=== PATIENT | male | born 1955 | race Caucasian/White ===

== ENCOUNTER → 2016-05-08 | Outpatient (CLI) | payer OTHER ==
[~2016-05-08] MED LIST: ASPI325T PO; ASPI325T28 PO; CHLO125TA PO; CIPR500T89 PO; DIAB2.5T PO; FINA5TAB2 PO; FLAG500T PO; GLYB25TA PO; INSUDET SC; LISI40TAB PO; METF1000 PO; METO50TA2 PO; MULTTAB86 PO; PERC5TAB6 PO; PROS5TAB PO; TYLE167L PO; VITA100072 PO; VITA200016 PO; ZEST1TAB9 PO
[2016-05-08 12:19] LABS: ALBUMIN 3.7 GM/DL (3.2-5.2); ALBUMIN/GLOBULIN RATIO 1.03 (1.00-1.93); ALKALINE PHOSPHATASE 110 U/L (45-117); ALT/SGPT 28 U/L (12-78); ANION GAP 11 MEQ/L (8-16); AST/SGOT 15 U/L (15-37); BILIRUBIN,TOTAL 0.3 MG/DL (0.2-1.0); BLOOD UREA NITROGEN 15 MG/DL (7-18); CALCIUM LEVEL 9.8 MG/DL (8.8-10.2); CARBON DIOXIDE LEVEL 28 MEQ/L (21-32); CHLORIDE LEVEL 100 MEQ/L (98-107); CREATININE FOR GFR 0.93 MG/DL (0.70-1.30); GLOMERULAR FILTRATION RATE > 60.0 (>49); GLUCOSE, FASTING 246 MG/DL (80-110); POTASSIUM SERUM 4.5 MEQ/L (3.5-5.1); SODIUM LEVEL 139 MEQ/L (136-145); TOTAL PROTEIN 7.3 GM/DL (6.4-8.2)
== END | disposition home or self-care (01) ==
LOC: M WUC 10:30
PROVIDERS: ATTEND Physician Assistant
DX: E11.9 Type 2 diabetes mellitus without complications (principal)

== ENCOUNTER → 2016-08-10 | Outpatient (CLI) | payer OTHER ==
[2016-08-10 18:35] LABS: ALBUMIN 3.8 GM/DL (3.2-5.2); ALBUMIN/GLOBULIN RATIO 1.12 (1.00-1.93); ALKALINE PHOSPHATASE 94 U/L (45-117); ALT/SGPT 33 U/L (12-78); ANION GAP 8 MEQ/L (8-16); AST/SGOT 20 U/L (15-37); BILIRUBIN,TOTAL 0.3 MG/DL (0.2-1.0); BLOOD UREA NITROGEN 11 MG/DL (7-18); CALCIUM LEVEL 9.4 MG/DL (8.8-10.2); CARBON DIOXIDE LEVEL 32 MEQ/L (21-32); CHLORIDE LEVEL 100 MEQ/L (98-107); CREATININE FOR GFR 0.79 MG/DL (0.70-1.30); GLOMERULAR FILTRATION RATE > 60.0 (>49); GLUCOSE, FASTING 134 MG/DL (80-110); POTASSIUM SERUM 3.6 MEQ/L (3.5-5.1); SODIUM LEVEL 140 MEQ/L (136-145); TOTAL PROTEIN 7.2 GM/DL (6.4-8.2)
== END ==
LOC: M WUC 11:09
PROVIDERS: ATTEND Physician Assistant
DX: E11.9 Type 2 diabetes mellitus without complications (principal)

== ENCOUNTER → 2016-08-28 | Outpatient (CLI) | payer OTHER | LOC: M WUC 09:41 | PROVIDERS: ATTEND Physician Assistant | DX: E11.9 Type 2 diabetes mellitus without complications (principal) ==

== ENCOUNTER → 2016-11-08 | Outpatient (CLI) | payer OTHER, MEDICARE, MEDICAID ==
[~2016-11-08] MED LIST changes: +ALBU17IN INH; +ASPI81TAEC PO; +ATOR40TA75 PO; +CHLO25TA PO; +CIPR-249 PO; -CIPR500T89 PO; +CLOP75TA2 PO; -METF1000 PO; +METF10004 PO; -METO50TA2 PO; +METO50TA7 PO; +NATE60TA5 PO; +OMEP20CA3 PO; +PERC5TAB12 PO; -PERC5TAB6 PO; +TOUJ1.2I SC; +TRAM50TA2 PO; +VITA100067 PO
[2016-11-08 18:40] LABS: ALBUMIN 3.6 GM/DL (3.2-5.2); ALBUMIN/GLOBULIN RATIO 0.97 (1.00-1.93); ALKALINE PHOSPHATASE 109 U/L (45-117); ALT/SGPT 27 U/L (12-78); ANION GAP 9 MEQ/L (8-16); AST/SGOT 21 U/L (15-37); BILIRUBIN,TOTAL 0.4 MG/DL (0.2-1.0); BLOOD UREA NITROGEN 12 MG/DL (7-18); CALCIUM LEVEL 9.7 MG/DL (8.8-10.2); CARBON DIOXIDE LEVEL 28 MEQ/L (21-32); CHLORIDE LEVEL 103 MEQ/L (98-107); CHOLESTEROL LEVEL 112 MG/DL (<200); CREATININE FOR GFR 0.87 MG/DL (0.70-1.30); GLOMERULAR FILTRATION RATE > 60.0 (>49); GLUCOSE, FASTING 117 MG/DL (80-110); SODIUM LEVEL 140 MEQ/L (136-145); TOTAL PROTEIN 7.3 GM/DL (6.4-8.2); TRIGLYCERIDES LEVEL 119 MG/DL (<150)
== END ==
LOC: M WUC 09:36
PROVIDERS: ATTEND Physician Assistant
DX: E11.9 Type 2 diabetes mellitus without complications (principal); E78.4 Other hyperlipidemia; Z12.5 Encounter for screening for malignant neoplasm of prostate

== ENCOUNTER → 2016-12-30 | Outpatient (CLI) | payer OTHER, MEDICARE, MEDICAID ==
[2017-01-02 00:06] LABS: ACETAMINOPHEN Negative ug/mL (10-30); AMITRIPTYLINE None Detected (Not Estab.); BUTALBITAL None Detected ug/mL (1-10); DESIPRAMINE None Detected (Not Estab.); DIAZEPAM None Detected ug/mL (0.1-0.9); DOXEPIN None Detected (Not Estab.); ETHANOL Negative % (0.000-0.010); NORCHLORDIAZEPOXIDE None Detected ug/mL (0.1-0.6); NORDIAZEPAM None Detected ug/mL (0.1-1.4); NORDOXEPIN None Detected (Not Estab.); NORTRIPTYLINE None Detected ng/mL (50-150); PENTOBARBITAL None Detected ug/mL (1-5); PHENOBARBITAL None Detected ug/mL (15-40); PHENYTOIN None Detected ug/mL (10.0-20.0)
== END ==
LOC: M WUC 09:13
PROVIDERS: ATTEND Physical Medicine & Rehabilitation
DX: Z98.1 Arthrodesis status (principal)

== ENCOUNTER 2017-01-22 17:52 | Observation (INO) | payer MEDICAID, MEDICARE, OTHER ==
[~2017-01-22] VITALS: Ht 190.5 cm; Wt 95.4 kg
[~2017-01-22 17:52] MED LIST changes: -ALBU17IN INH; -ASPI81TAEC PO; -ATOR40TA75 PO; -CHLO25TA PO; -CLOP75TA2 PO; -NATE60TA5 PO; -OMEP20CA3 PO; -TOUJ1.2I SC; -TRAM50TA2 PO; -VITA100067 PO
[2017-01-22] MEDS ORDERED: niCARdipine IV 40 MG in APPROPRIATE DILUENT 1 EA IV SCH (18:25)
[2017-01-22] MEDS ORDERED: NATE60TA5 PO (18:29)
[2017-01-22] MEDS ORDERED: CHLO25TA PO (18:29)
[2017-01-22] MEDS ORDERED: ATOR40TA75 PO (18:29)
--- NOTE | 2017-01-22 18:30 | REPUSA ---
CT of the head Clinical history: Headache. Technique: Multiple axial CT images were obtained through the head without administration of contrast . Findings: The ventricles and sulci are symmetric bilaterally. There is no evidence of acute hemorrhag e or infarct. There is no midline shift, mass effect, or extra-axial fluid collection. The osseous st ructures are unremarkable. The visualized paranasal sinuses and mastoid air cells are clear. Impression: Negative study.
[2017-01-22 18:39] LABS: INR 0.83
[2017-01-22 18:42] LABS: BASO # 0.1 K/mm3 (0.0-0.2); BASO % 0.7 % (0.0-1.0); EOS # 0.3 K/mm3 (0.0-0.50); EOS % 2.8 % (0.0-3.0); LARGE UNSTAINED CELL # 0.2 K/mm3 (0.0-0.4); LYMPH # 3.6 K/mm3 (1.5-4.5); LYMPH % 30.3 % (24.0-44.0); MEAN CORPUSCULAR HEMOGLOBIN 29.2 pg (27.0-33.0); MEAN CORPUSCULAR HGB CONC 34.1 g/dl (32.0-36.5); MEAN CORPUSCULAR VOLUME 85.7 fl (80.0-96.0); MONO # 0.7 K/mm3 (0.0-0.8); MONO % 5.9 % (0.0-5.0); NEUTROPHILS # 6.9 K/mm3 (1.8-7.7); NEUTROPHILS % 58.3 % (36.0-66.0); PLATELET COUNT, AUTOMATED 453 k/mm3 (150-450); RED CELL DISTRIBUTION WIDTH 14.3 % (11.5-14.5); WHITE BLOOD COUNT 11.9 K/mm3 (4.0-10.0)
[2017-01-22 18:45] LABS: ANION GAP 9 MEQ/L (8-16); BLOOD UREA NITROGEN 10 MG/DL (7-18); CALCIUM LEVEL 9.5 MG/DL (8.8-10.2); CARBON DIOXIDE LEVEL 29 MEQ/L (21-32); CHLORIDE LEVEL 103 MEQ/L (98-107); CREATININE FOR GFR 0.76 MG/DL (0.70-1.30); GLOMERULAR FILTRATION RATE > 60.0 (>49); GLUCOSE, FASTING 89 MG/DL (80-110); POTASSIUM SERUM 3.7 MEQ/L (3.5-5.1); SODIUM LEVEL 141 MEQ/L (136-145)
--- NOTE | 2017-01-22 19:49 | REP ---
CHEST, SINGLE VIEW: Single view of the chest is performed and compared to prior study of 12/23/2016. Consolidation is seen in the left upper lobe. Underlying left upper lobe mass is not excluded. The right lung is clear. The left ventricle is prominent. Metallic plate and screws are seen in the cervical spine. Signed by Tim Hassan MD 01/22/2017 07:57 P
[2017-01-22] MEDS ORDERED: VITA100067 PO (20:35)
[2017-01-22] MEDS ORDERED: CHLO125TA PO (20:35)
[2017-01-22] MEDS ORDERED: TOUJ1.2I SC (20:37)
[2017-01-22] MEDS ORDERED: OMEP20CA3 PO (20:37)
[2017-01-22] MEDS ORDERED: TRAM50TA2 PO (20:37)
[2017-01-22] MEDS ORDERED: ALBU17IN INH (20:37)
[2017-01-22] MEDS ORDERED: ACETAMINOPHEN TAB 650MG DOSE (2X325MG) PO PRN (23:00)
[2017-01-22] MEDS ORDERED: traMADol 50 MG TAB PO PRN (23:15)
[2017-01-22] MEDS ORDERED: GLUCOSE 4 GM CHEW TABLET PO PRN (23:15)
[2017-01-22] MEDS ORDERED: GLUCAGON FOR INJ 1 MG VIAL (J1610) SC PRN (23:15)
[2017-01-22] MEDS ORDERED: ALBUTEROL 90 MCG/ACT 8GM HFA INHALER INH PRN (23:15)
[2017-01-22] MEDS ORDERED: DEXTROSE 50% 50 ML SYRINGE IV PRN (23:15)
[2017-01-23] VITALS (10 sets, daily range): BP systolic 105–153; BP diastolic 56–82
[2017-01-23 06:45] LABS: BASO # 0.1 K/mm3 (0.0-0.2); BASO % 0.7 % (0.0-1.0); EOS # 0.3 K/mm3 (0.0-0.50); EOS % 2.6 % (0.0-3.0); LARGE UNSTAINED CELL # 0.2 K/mm3 (0.0-0.4); LARGE UNSTAINED CELL % 1.7 % (0.0-4.0); LYMPH # 2.2 K/mm3 (1.5-4.5); LYMPH % 21.5 % (24.0-44.0); MEAN CORPUSCULAR HEMOGLOBIN 29.4 pg (27.0-33.0); MEAN CORPUSCULAR HGB CONC 34.8 g/dl (32.0-36.5); MEAN CORPUSCULAR VOLUME 84.5 fl (80.0-96.0); MONO # 0.6 K/mm3 (0.0-0.8); NEUTROPHILS # 6.8 K/mm3 (1.8-7.7); NEUTROPHILS % 67.4 % (36.0-66.0); PLATELET COUNT, AUTOMATED 406 k/mm3 (150-450); RED CELL DISTRIBUTION WIDTH 14.3 % (11.5-14.5)
[2017-01-23 07:12] LABS: ALBUMIN 3.3 GM/DL (3.2-5.2); ALBUMIN/GLOBULIN RATIO 0.87 (1.00-1.93); ALKALINE PHOSPHATASE 86 U/L (45-117); ALT/SGPT 22 U/L (12-78); ANION GAP 7 MEQ/L (8-16); AST/SGOT 13 U/L (15-37); BILIRUBIN,TOTAL 0.4 MG/DL (0.2-1.0); BLOOD UREA NITROGEN 7 MG/DL (7-18); CARBON DIOXIDE LEVEL 30 MEQ/L (21-32); CHLORIDE LEVEL 105 MEQ/L (98-107); CREATININE FOR GFR 0.66 MG/DL (0.70-1.30); GLOMERULAR FILTRATION RATE > 60.0 (>49); GLUCOSE, FASTING 109 MG/DL (80-110); MAGNESIUM LEVEL 1.7 MG/DL (1.8-2.4); POTASSIUM SERUM 3.5 MEQ/L (3.5-5.1); SODIUM LEVEL 142 MEQ/L (136-145); TOTAL PROTEIN 7.1 GM/DL (6.4-8.2)
[2017-01-23] MEDS ORDERED: LEVEMIR (INSULIN DETEMIR) 1 UNITS/0.01ML SC SCH (07:30)
[2017-01-23] MEDS: HumaLOG INSULIN (NovoLOG) PER UNIT SC SCH ×3 (07:30→18:44)
[2017-01-23] MEDS ORDERED: metFORMIN (GLUCOPHAGE) 1000 MG TABLET PO SCH (08:00)
[2017-01-23] MEDS: ATORVASTATIN 20 MG TAB PO SCH (10:12)
[2017-01-23] MEDS: ASPIRIN 81 MG ENTERIC TAB PO SCH (10:12)
[2017-01-23] MEDS: DOCUSATE SODIUM 100 MG CAP PO SCH ×2 (10:12→20:13)
[2017-01-23] MEDS: VITAMIN D 1,000 INTERNATIONAL UNITS TABLET PO SCH (10:13)
[2017-01-23] MEDS: CYANOCOBALAMIN 500 MCG TAB PO SCH (10:13)
[2017-01-23] MEDS: CHLORTHALIDONE 12.5MG PER 1/2 TABLET PO SCH (10:14)
[2017-01-23] MEDS: CLOPIDOGREL 75 MG TAB PO SCH (10:14)
[2017-01-23] MEDS: METOPROLOL TART 50 MG TAB PO SCH ×2 (10:15→20:14)
[2017-01-23] MEDS: LISINOPRIL 40 MG TAB PO SCH (10:15)
--- NOTE | 2017-01-23 10:25 | HPE ---
DATE OF ADMISSION: 01/22/2017 PRIMARY CARE PROVIDER: JOSE ANGEL Kingsley CHIEF COMPLAINT: Right-sided weakness and garbled speech. HISTORY OF PRESENT ILLNESS: This is a 61-year-old male with a history of hypertension, insulin dependent diabetes, benign prostatic hypertrophy (BPH), who was at home per the and patient. He experienced right-sided weakness. He could not move his right arm. He could not stand. His speech was garbled. His called the ambulance. He was transported to the emergency room. Prior to arrival he had 324 mg of aspirin. He had a slight facial droop, garbled speech, unilateral weakness on the right. His blood pressure was 207/101. Pulse was 94. Respirations were 20. Temperature was 98.4. Pulse oximetry was 94. LABORATORY STUDIES: Showed a white count slightly elevated 11.9, hemoglobin 13.8, hematocrit 40.3, platelets of 453. Sodium 141, potassium 3.7, chloride 103, CO2 29, anion gap was 9. BUN 10, creatinine was 0.76. Troponin was 0.02. EKG was done. Showed sinus rhythm. No acute ischemia. He had a CT of the head, which was negative. No evidence of acute hemorrhage or infarct. Chest x-ray was done, which showed consolidation in the left upper lobe. Underlying left upper lobe mass is not excluded. His symptoms resolved spontaneously in the emergency room. His first pressure was at 1820 hours, by 2030 hours his pressure was 153/84. By 2045 hours it was 146/80. He had no further garbled speech or weakness of his right extremity. The emergency room physician spoke with neurology, recommended admission, Plavix, aspirin, telemetry, MRI, MRA and 2D echo. Assessment was done. The patient will be admitted for transient ischemic attack (TIA), hypertensive emergency. Testing is recommended as above and further workup of the left upper lobe consolidation. SOCIAL HISTORY: He is . He does not drink alcohol. He smokes 5 to 6 cigarettes per day. He does not use recreational drugs. PAST MEDICAL HISTORY: Insulin dependent diabetes. Hypertension. BPH. Vitamin D deficiency. Chronic neck pain for which he follows with Dr. Judd. PAST SURGICAL HISTORY: Neck surgery. Cholecystectomy. Appendectomy. Bilateral hernia repair. Colonoscopy. He has had colovesical fistula. CURRENT MEDICATIONS: - aspirin 325 mg by mouth daily - atorvastatin 40 mg by mouth daily - chlorthalidone 12.5 mg by mouth daily - vitamin B12 1000 mcg by mouth daily - finasteride 5 mg by mouth every pm - lisinopril 40 mg by mouth daily - metformin 1000 mg by mouth twice a day - metoprolol tartrate 50 mg by mouth twice a day - tramadol 50 mg by mouth every 4 hours as needed for pain - vitamin D 1000 units by mouth daily - Toujeo SoloStar 300 units per mL, 40 units subcutaneous twice a day - nateglinide 60 mg by mouth three times a day - omeprazole 25 mg by mouth daily FAMILY HISTORY: Noncontributory. REVIEW OF SYSTEMS: No complaint of headaches, no blurring or double vision. No fever, no chills, no tinnitus, no hoarseness, no difficulty swallowing. No lightheadedness or vertigo. He had garbled speech which is resolved. Cardiovascular: No complaints of chest pain, shortness of breath, palpitations or edema. Respiratory: No chronic cough. No sputum production. No hemoptysis. No orthopnea. No wheeze. Chest x-ray shows possible consolidation left upper lobe. GI: No nausea, vomiting or diarrhea. No hematochezia, no melena. No complaints of abdominal pain. : History of benign prostatic hypertrophy (BPH), on finasteride. No hematuria, dysuria or frequency. Musculoskeletal: Chronic neck pain. Follows with Dr. Judd. No joint redness or swelling. Had right-sided weakness which is resolved. Endocrine: Insulin dependent diabetes. Hematological: No history of anemia. Neurological: Episode today of garbled speech, right-sided weakness. No history of seizures. Psychological: No anxiety, depression or suicidal ideations. PHYSICAL EXAMINATION: 61-year-old cooperative male. Blood pressure currently 126/72, pulse 88, respirations 18, O2 saturation 94% on room air. Temperature 98. The patient is alert and oriented times three. Pupils equal and react to light. Extraocular muscles intact. Cornea and sclerae are clear. Conjunctiva is normal. No facial asymmetry. Pharynx, tongue and gums pink and moist. Tongue is midline. Neck is supple without lymphadenopathy or thyromegaly, no goiter. Carotids 2+ without bruits. Chest has decreased breath sounds. No wheezing or retraction. Heart is regular. Abdomen: Benign. Bowel sounds positive. /RECTAL: Not done. Extremities: Hand grasps are equal. Full range of motion. No cyanosis, clubbing or edema. Peripheral pulses equal and palpable bilaterally. Skin is warm and dry. IMPRESSION: Hypertensive emergency. TIA. Left upper lobe consolidation. PLAN: The patient will be admitted to the service of Dr. Solomon. Consult with Dr. Walls. Get a PA and lateral chest x-ray in the morning. Start Plavix and aspirin 81 mg, statin. MRI/MRA. 2D echo. Carotid ultrasound. The patient will be admitted to the PCU unit.
--- NOTE | 2017-01-23 12:03 | REP ---
TWO VIEW CHEST: Two views of the chest are performed. There is left upper lobe consolidation again noted. I suspect a left hilar mass. Recommend CT of the chest with IV contrast to further evaluate. There also appears to be mild atelectasis or infiltrate inferiorly along the left hemidiaphragm. IMPRESSION: Left upper lobe consolidation. Suspect left hilar mass. Recommend CT of the chest with IV contrast. Signed by Tim Hassan MD 01/23/2017 07:33 P
[2017-01-23] MEDS ORDERED: MAG SULF 1GM/100ML (MAG RUN) 1 GM in APPROPRIATE DILUENT 1 EA IV ONE (14:15)
[2017-01-23] MEDS ORDERED: ISOVUE-370 76% 100ML VIAL (Q9967) As Ordered ONE (14:35)
[2017-01-23] MEDS: MAGNESIUM OXIDE 400 MG TAB (MAG-OX) PO SCH (15:05)
--- NOTE | 2017-01-23 15:07 | IPNPDOC ---
Subjective Date Seen The patient was seen on 01/23/17. Subjective Chief Complaint/HPI The patient is a 61-year-old male admitted with a reason for visit of Tia/ Hypertensive Emergency. Events since last encounter Patient states right face and hand numbness, and right hand weakness, have completely resolved and he feels that he is at his baseline. He states he did not receive his long-acting insulin last night or this morning. He states he has occasional low glucose at home to 60, but generally tries to keep his glucose between 80 - 130. Constitutional: Denies: Chills, Fever ENT: Denies: Head Aches Pulmonary: Reports: Cough (chronic cough, worse today), Denies: Dyspnea Cardiovascular: Denies: Chest Pain, Palpitations, Lt Headedness Gastrointestinal: Denies: Nausea, Vomiting, Abdominal Pain, Diarrhea, Constipation Neurological: Denies: Weakness, Numbness, Change in speech, Confusion Psych: Reports: Mood Normal, Memory Issues Objective Physical Examination General Exam: Positive: Alert, Cooperative, No Acute Distress Eye Exam: Positive: PERRLA, Conjunctiva & lids normal, EOMI ENT Exam: Positive: Atraumatic, Mucous membr. moist/pink Chest Exam: Positive: Normal air movement, Rhonchi (Diffuse mild rhonchi), Negative: Rales, Wheezing Heart Exam: Positive: Rate Normal, Normal S1, Normal S2, Negative: Murmurs Abdomen Exam: Positive: Normal bowel sounds, Soft, Negative: Tenderness Extremity Exam: Negative: Edema Skin Exam: Positive: Nl turgor and temperature, Negative: Rash Neuro Exam: Positive: Normal Gait, Normal Speech, Strength at 5/5 X4 ext, Normal Tone, Sensation Intact, Cranial Nerves 3-12 NL, Reflexes 2+ Psych Exam: Positive: Mental status NL, Mood NL, Oriented x 3 Assessment /Plan Problems (1) TIA (transient ischemic attack) Status: Resolved Problem Text: Neuro exam is normal today and patient is asymptomatic - likely due to hypertensive urgency. - MRI/MRA of brain was done today and read is pending - Echo and carotid dopplers pending - Neuro consulted - Continue aspirin and plavix as recommended by Neuro - Continue to monitor on telemetry and continue neurochecks (2) Hypertensive emergency Status: Resolved Problem Text: Resolved in the ED; continue lisinopril. (3) Insulin dependent diabetes mellitus Status: Chronic Response to Treatment: Stable Problem Text: Glucose has been 100s despite receiving no levemir for the past 24 hours. Will d/c metformin and levemir for now and monitor with chemsticks QACHS and cover with ISS - will add levemir back if glucose becomes elevated. - HD levemir is 48U BID (4) Hypertension Status: Chronic Response to Treatment: Stable Problem Text: BP is now at goal - monitor. (5) Left upper lobe consolidation Status: Acute Problem Text: Seen on CXR; will order CT of chest with IV contrast to assess further. (6) Hypomagnesemia Status: Acute Response to Treatment: Stable Problem Text: Will give IV mag 1 g x1, and start PO mag; recheck Mag in the AM (7) COPD (chronic obstructive pulmonary disease) Plan/VTE VTE Prophylaxis Ordered?: Yes (Harsh/SCDs) VS, I&O, 24H, Fishbone Vital Signs/I&O Vital Signs Date Time Temp Pulse Resp B/P (MAP) Pulse Ox O2 Delivery O2 Flow Rate FiO2 01/23/17 10:15 99 153/72 01/23/17 10:00 98.2 18 97 Room Air 01/23/17 06:00 2.0 I&O- Last 24 Hours up to 6 AM 01/24/17 06:00 Intake Total 240 ml Output Total 900 ml Balance -660 ml Laboratory Data 24H LABS Laboratory Tests 2 01/22/17 18:09: White Blood Count 11.9H, Red Blood Count 4.71, Hemoglobin 13.8L, Hematocrit 40.3L, Mean Corpuscular Volume 85.7, Mean Corpuscular Hemoglobin 29.2, Mean Corpuscular Hemoglobin Concent 34.1, Red Cell Distribution Width 14.3, Platelet Count 453H, Neutrophils (%) (Auto) 58.3, Lymphocytes (%) (Auto) 30.3, Monocytes (%) (Auto) 5.9H, Eosinophils (%) (Auto) 2.8, Basophils (%) (Auto) 0.7, Neutrophils # (Auto) 6.9, Lymphocytes # (Auto) 3.6, Monocytes # (Auto) 0.7, Eosinophils # (Auto) 0.3, Basophils # (Auto) 0.1, Large Unclassified Cells % 2.0 , Large Unclassified Cells # 0.2, Prothrombin Time 11.4L, Prothromb Time International Ratio 0.83, Activated Partial Thromboplast Time 31.1, Anion Gap 9 , Glomerular Filtration Rate > 60.0, Blood Urea Nitrogen 10, Creatinine 0.76, Sodium Level 141, Potassium Level 3.7, Chloride Level 103, Carbon Dioxide Level 29, Calcium Level 9.5, Total Creatine Kinase 169, Creatine Kinase MB 1.5, Creatine Kinase MB Relative Index 0.88, Troponin I < 0.02 01/23/17 06:22: White Blood Count 10.0, Red Blood Count 4.71, Hemoglobin 13.8L, Hematocrit 39.8L , Mean Corpuscular Volume 84.5, Mean Corpuscular Hemoglobin 29.4, Mean Corpuscular Hemoglobin Concent 34.8, Red Cell Distribution Width 14.3, Platelet Count 406, Neutrophils (%) (Auto) 67.4H, Lymphocytes (%) (Auto) 21.5L, Monocytes (%) (Auto) 6.0H, Eosinophils (%) (Auto) 2.6, Basophils (%) (Auto) 0.7 , Neutrophils # (Auto) 6.8, Lymphocytes # (Auto) 2.2, Monocytes # (Auto) 0.6, Eosinophils # (Auto) 0.3, Basophils # (Auto) 0.1, Large Unclassified Cells % 1.7 , Large Unclassified Cells # 0.2, Anion Gap 7L, Glomerular Filtration Rate > 60.0, Blood Urea Nitrogen 7, Creatinine 0.66L, Sodium Level 142, Potassium Level 3.5, Chloride Level 105, Carbon Dioxide Level 30, Calcium Level 9.0, Aspartate Amino Transf (AST/SGOT) 13L, Alanine Aminotransferase (ALT/SGPT) 22, Alkaline Phosphatase 86, Total Bilirubin 0.4, Total Protein 7.1, Albumin 3.3, Magnesium Level 1.7L, Albumin/Globulin Ratio 0.87L 01/23/17 12:35: Bedside Glucose (Misc Panel) 162H CBC/BMP Laboratory Tests 01/22/17 18:09 Red Blood Count 4.71, Mean Corpuscular Volume 85.7, Mean Corpuscular Hemoglobin 29.2, Mean Corpuscular Hemoglobin Concent 34.1, Red Cell Distribution Width 14.3 , Neutrophils (%) (Auto) 58.3, Lymphocytes (%) (Auto) 30.3, Monocytes (%) (Auto ) 5.9 H, Eosinophils (%) (Auto) 2.8, Basophils (%) (Auto) 0.7, Neutrophils # ( Auto) 6.9, Lymphocytes # (Auto) 3.6, Monocytes # (Auto) 0.7, Eosinophils # (Auto ) 0.3, Basophils # (Auto) 0.1, Calcium Level 9.5, Total Creatine Kinase 169 01/23/17 06:22 Red Blood Count 4.71, Mean Corpuscular Volume 84.5, Mean Corpuscular Hemoglobin 29.4, Mean Corpuscular Hemoglobin Concent 34.8, Red Cell Distribution Width 14.3 , Neutrophils (%) (Auto) 67.4 H, Lymphocytes (%) (Auto) 21.5 L, Monocytes (%) ( Auto) 6.0 H, Eosinophils (%) (Auto) 2.6, Basophils (%) (Auto) 0.7, Neutrophils # (Auto) 6.8, Lymphocytes # (Auto) 2.2, Monocytes # (Auto) 0.6, Eosinophils # ( Auto) 0.3, Basophils # (Auto) 0.1, Calcium Level 9.0, Aspartate Amino Transf ( AST/SGOT) 13 L, Alanine Aminotransferase (ALT/SGPT) 22, Alkaline Phosphatase 86 , Total Bilirubin 0.4, Total Protein 7.1, Albumin 3.3 MICHAEL MAYES MD Jan 23, 2017 15:07
[2017-01-23] MEDS ORDERED: FINASTERIDE 5 MG TAB PO SCH (21:00)
[2017-01-24] VITALS: BP 115/57
[2017-01-24 02:00] VITALS: BP 109/56
[2017-01-24 04:00] VITALS: BP 133/83
--- NOTE | 2017-01-24 05:50 | ECGEPIP ---
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
[2017-01-24 05:55] LABS: MEAN CORPUSCULAR HEMOGLOBIN 29.2 pg (27.0-33.0); MEAN CORPUSCULAR HGB CONC 34.3 g/dl (32.0-36.5); MEAN CORPUSCULAR VOLUME 85.1 fl (80.0-96.0); RED CELL DISTRIBUTION WIDTH 14.4 % (11.5-14.5); WHITE BLOOD COUNT 9.2 K/mm3 (4.0-10.0)
[2017-01-24 06:00] VITALS: BP 111/62
[2017-01-24 06:30] LABS: ANION GAP 10 MEQ/L (8-16); BLOOD UREA NITROGEN 7 MG/DL (7-18); CALCIUM LEVEL 8.4 MG/DL (8.8-10.2); CARBON DIOXIDE LEVEL 29 MEQ/L (21-32); CHLORIDE LEVEL 103 MEQ/L (98-107); CREATININE FOR GFR 0.76 MG/DL (0.70-1.30); GLOMERULAR FILTRATION RATE > 60.0 (>49); GLUCOSE, FASTING 133 MG/DL (80-110); POTASSIUM SERUM 3.7 MEQ/L (3.5-5.1); SODIUM LEVEL 142 MEQ/L (136-145)
[2017-01-24] MEDS: HumaLOG INSULIN (NovoLOG) PER UNIT SC SCH ×2 (07:30→12:35)
[2017-01-24 08:00] VITALS: BP 118/80
[2017-01-24] MEDS: VITAMIN D 1,000 INTERNATIONAL UNITS TABLET PO SCH (09:40)
[2017-01-24] MEDS: CYANOCOBALAMIN 500 MCG TAB PO SCH (09:40)
[2017-01-24] MEDS: ASPIRIN 81 MG ENTERIC TAB PO SCH (09:40)
[2017-01-24] MEDS: DOCUSATE SODIUM 100 MG CAP PO SCH (09:40)
[2017-01-24] MEDS: CLOPIDOGREL 75 MG TAB PO SCH (09:40)
[2017-01-24] MEDS: ATORVASTATIN 20 MG TAB PO SCH (09:40)
[2017-01-24] MEDS: LISINOPRIL 40 MG TAB PO SCH (09:40)
[2017-01-24] MEDS: MAGNESIUM OXIDE 400 MG TAB (MAG-OX) PO SCH (09:40)
[2017-01-24 09:41] VITALS: BP 118/80
[2017-01-24] MEDS: METOPROLOL TART 50 MG TAB PO SCH (09:41)
[2017-01-24] MEDS: CHLORTHALIDONE 12.5MG PER 1/2 TABLET PO SCH (12:54)
[2017-01-24] MEDS ORDERED: CLOP75TA2 PO (13:10)
--- NOTE | 2017-01-24 13:20 | REP ---
CT CHEST WITH IV CONTRAST: TECHNIQUE: Axial contrast enhanced images from the thoracic inlet to the upper abdomen using 100 mL Isovue 370 intravenous contrast material with multiplanar reformations. There is a large left hilar mass. This encases the main left pulmonary artery and obliterates the left upper lobe bronchus. It measures approximately 6.5 x 3.6 cm. Margins are irregular. There is consolidative collapse of the left upper lobe. Slightly enlarged right hilar lymph node measures 1.2 cm in short axis. There are other subcentimeter mediastinal nodes present. There is no thoracic aortic aneurysm or dissection. The heart is not enlarged. There is no pleural or pericardial effusion. No other significant parenchymal abnormality is seen. In the visualized portions of the upper abdomen there is a small subcentimeter enhancing nodule in the right lobe of the liver, which is unchanged since prior exams dating back to 04/05/2015 consistent with a small benign lesion such as hemangioma. Right adrenal nodule measures 2.8 x 2.2 cm and has been present for at least 10 years and has been slowly growing since that time, most consistent with an adenoma. IMPRESSION: Large left hilar mass encases the main left pulmonary artery and obliterates the left upper lobe bronchus. There is resultant consolidative collapse of the left upper lobe. Signed by Tim Hassan MD 01/24/2017 07:00 P
--- NOTE | 2017-01-24 13:20 | REP ---
MRI BRAIN WITHOUT CONTRAST: Multiple sequences obtained in the axial and sagittal planes. Comparison head CT 01/22/2017. There is very mild atrophy. There is no midline shift or mass effect. Tiny focal T2 hyperintensities are seen in the periventricular white matter compatible with old small vessel ischemic changes and tiny areas of gliosis. No acute infarct is seen, with no significant abnormal signal on ADC or DWI images. Brain stem and cerebellum appear unremarkable. VII/VIII cranial nerve complexes appear unremarkable. The globes are intact. No other abnormalities are seen. IMPRESSION: Mild atrophy and chronic periventricular white matter small vessel ischemic changes. No acute abnormalities. No evidence of acute infarct. Signed by Tim Hassan MD 01/24/2017 07:01 P
--- NOTE | 2017-01-24 13:20 | REP ---
MRA BRAIN: MRA brain is performed utilizing 3D TOF imaging with MIP reconstruction images. There is a dominant left vertebral artery with hypoplasia of the right vertebral artery. Basilar artery is widely patent. Intracranial carotid vessels are widely patent and symmetrical in appearance. Anterior communicating arteries are patent. The anterior, middle and posterior cerebral arteries are patent and symmetrical bilaterally. I do not see significant intracranial arterial stenosis. There is no evidence of aneurysm or AVM. IMPRESSION: Unremarkable MRA brain. Signed by Tim Hassan MD 01/24/2017 07:01 P
--- NOTE | 2017-01-24 13:22 | REP ---
CAROTID ULTRASOUND: Real-time ultrasound evaluation and duplex Doppler interrogation of the extracranial carotid vasculature is performed. There is mild to moderate plaquing and narrowing in both carotid bulbs extending into the internal and external carotid arteries. Luminal narrowing is less than 50%. There is no evidence of hemodynamically significant stenosis of either internal carotid artery. Normal flow velocities are seen. The left vertebral artery demonstrate normal direction of flow. The right vertebral artery is not visualized. RIGHT LEFT Peak systolic velocity ICA 55.4 cm/s 52.8 cm/s End diastolic velocity ICA 18.3 cm/s 20.6 cm/s Peak systolic velocity CCA 56.4 cm/s 60.3 cm/s Peak systolic velocity ECA 48.3 cm/s 37.1 cm/s ICA/CCA ratio 0.98 0.88 IMPRESSION: Bilateral luminal narrowing of the internal carotid arteries less than 50%. No evidence of hemodynamically significant stenosis. Signed by Tim Hassan MD 01/24/2017 11:13 A
[2017-01-24] MEDS ORDERED: ASPI81TAEC PO (13:26)
--- NOTE | 2017-01-24 15:21 | ECHO ---
DATE OF PROCEDURE: 01/23/2017 DATE OF : 1955 AGE: 61 GENDER: Male HEIGHT: 75 inches WEIGHT: 209 pounds BODY SURFACE AREA: 2.23 meters squared INPATIENT: Progressive care unit (PCU) REFERRING PHYSICIAN: Gris Donovan Nurse Practitioner INDICATION: Transient ischemic attack (TIA). Question cardiac source of embolic material. MEASUREMENTS: 2D measurements: RV: 3.8 cm LV: 4.4 cm Septum: 1.2 cm Posterior wall: 1.2 cm Aortic root: 3.6 cm LA: 3.8 cm LVEF: 65% DOPPLER MEASUREMENTS: AV: 1.4 meters per second LVOT: 1.3 meters per second LVOT diameter: 2.1 cm MV-E: 64, A: 84, EA ratio: 0.8 Early mitral deceleration time: 230 milliseconds E prime: 4.5, A prime: 11, E/E prime ratio: 14.2 Estimated mean pulmonary artery wedge pressure: 9 mmHg PV: 0.65 meters per second Pulmonary artery acceleration time: 95 milliseconds RVSP: 45 mmHg IVC: 2.3 cm COMMENTS: Normal sinus rhythm without intraventricular conduction disturbance. Left atrial size upper limits of normal to slightly dilated. Normal left ventricular size. Right heart chambers were also upper limits of normal in size. LV wall thickness was upper limits of normal to borderline hypertrophied. On real-time imaging from the parasternal and apical projections, wall motion was symmetrical and hyperkinetic. Mildly thickened mitral annulus but normal leaflet thickness and excursion with no posterior systolic buckling. Three equal size aortic cusps with slightly thickened cusp edges but adequate cusp separation. Normal aortic root size. No apparent intracardiac mass or pericardial effusion. Color flow Doppler study taken from the parasternal and apical projections showed trace mitral, very mild tricuspid and very mild pulmonic but no aortic insufficiency. Guided continuous wave Doppler of his LV outflow tract showed a normal peak systolic velocity against LV outflow tract obstruction. Pulsed and continuous wave Doppler of his LV inflow tract taken from the apical four-chamber projection showed normal diastolic filling velocities against mitral stenosis. There was more prominent late diastolic/atrial dependent filling pattern. A degree of LV diastolic dysfunction was further confirmed by a prolonged early mitral deceleration time and tissue Doppler of his mitral annulus. However, his current estimated mean left atrial pressure was within normal limits. Pulsed and continuous wave Doppler of his pulmonary trunk showed a normal peak systolic velocity against RV outflow tract obstruction. His pulmonary artery acceleration time was slightly abbreviated consistent with an elevated pulmonary vascular resistance. Guided continuous wave Doppler of his tricuspid valve allowed our estimation of his right ventricular systolic pressure (moderately increased). His inferior vena cava was mildly dilated with slightly reduced respiratory collapse suggestive of a slightly elevated central venous pressure. CONCLUSIONS: Unable to clearly identify a cardiac source of embolic material. Mild aortic valvular sclerosis without functional abnormality. Could not rule out a sessile vegetation. Mild mitral annular thickening without functional valvular abnormality. Borderline left ventricular hypertrophy with hyperkinetic wall motion. Borderline left atrial enlargement with Doppler evidence of an impairment of LV diastolic function but currently normal estimated mean left atrial pressure. Right heart chamber sizes upper limits of normal with Doppler evidence to suggest moderate pulmonary hypertension. Mildly dilated inferior vena cava (IVC) with reduced respiratory collapse suggestive of a slightly elevated central venous pressure. If a cardiac source of embolic material is seriously suspect, we would recommend a complete blood count, sedimentation rate and two sets of blood cultures along with a transesophageal echocardiogram.
--- NOTE | 2017-01-24 17:08 | DSES ---
DATE OF ADMISSION: 01/22/2017 DATE OF DISCHARGE: 01/24/2017 PRIMARY CARE PROVIDER: [place] PA-C PRINCIPAL DIAGNOSIS: Transient ischemic attack. SECONDARY DIAGNOSES: 1. Hypertensive urgency. 2. Insulin-dependent diabetes mellitus. 3. Left upper lobe consolidation. 4. Hypomagnesemia. 5. Chronic obstructive pulmonary disease (COPD). CONSULTANTS: Maribel Walls MD, neurology. INVASIVE PROCEDURES: None. SUMMARY STATEMENT: This is a 61-year-old man with a history of hypertension and insulin-dependent diabetes, who presented to the emergency department with right arm weakness, right face numbness, and garbled speech. In the emergency department, he was noted to have a slight right facial droop. His initial blood pressure was elevated at 207/101 and improved in the emergency department without intervention. His neurologic symptoms also improved in the emergency department. He had a head CT scan done that was normal. He was admitted to the progressive care unit (PCU) for monitoring on telemetry and underwent multiple studies including MRI, MRA, echo, carotid ultrasound, and CT of chest with IV contrast. He had no recurrence of symptoms. He was evaluated by neurology who recommended continuing aspirin at decreased dose of 81 mg daily and adding Plavix. He will followup with neurology as an outpatient. DISCHARGE PLAN: 1. DISCHARGE MEDICATIONS: - clopidogrel 75 mg by mouth daily - albuterol sulfate two puffs by inhalation every 4 hours as needed for shortness of breath - aspirin 81 mg by mouth daily - atorvastatin 40 mg by mouth daily - chlorthalidone 12.5 mg by mouth daily - vitamin B12 1000 mcg by mouth daily - finasteride 5 mg by mouth every evening - lisinopril 40 mg by mouth daily - metformin 1000 mg twice a day - metoprolol tartrate 50 mg by mouth twice a day - nateglinide 60 mg by mouth three times a day - omeprazole 20 mg by mouth daily - Toujeo 48 units subcutaneous twice a day - tramadol 50 mg by mouth every 4 hours as needed for pain - vitamin D 1000 units daily 2. Followup with [facility] within 3-5 days, patient will call for an appointment. Followup with Dr. Walls in 1-2 weeks. 3. Diet: Carbohydrate consistent diet. 4. Activity: As tolerated. CONDITION: Stable. PROGNOSIS: Good. HOSPITAL COURSE: This is a 61-year-old man with: 1. Right-sided weakness and face numbness with garbled speech: This was thought to likely be due to a transient ischemic attack (TIA). Patient was initially thought to have hypertensive emergency which may also have contributed. Patient underwent an MRI and an MRA and the wet read showed no acute lesion and neurology concurs with this; official read from radiology is pending. He also underwent other testing, including carotid ultrasound and echocardiogram, for which reports are pending and this should be followed up after discharge. Per neurology recommendation, he was started on Plavix and his aspirin and statin were continued. He was discharged on aspirin 81 mg daily, his home atorvastatin, and Plavix. He had no recurrence of symptoms and no events on telemetry. 2. Hypertension: Patient was continued on his home antihypertensives of metoprolol and lisinopril and blood pressure was well controlled on these during his hospitalization. 3. Insulin-dependent diabetes mellitus: Patient did eat poorly while in the hospital and had a blood glucose in the 100s to 200s without receiving any of his home Levemir. He was covered with an insulin sliding scale when he did eat. He states when he goes home, he will go back to eating normally and so he will go back on his Toujeo 48 units twice a day. He does check his glucose at home and I reviewed his glucometer results and his glucose is generally well controlled with this dose of Toujeo with only occasional low blood sugars in the 70s. 4. Left upper lobe consolidation: This is new. A CT with IV contrast was ordered, but official read is pending at time of discharge. This will need to be followed as an outpatient. 5. Hypomagnesemia: This was noted upon admission and he was given oral magnesium and IV magnesium to replete this. Magnesium was normal at 2.0 at time of discharge. 6. Chronic obstructive pulmonary disease: Patient did have some chronic cough during his hospitalization and was continued on his home albuterol. MARGARETTED
--- NOTE | 2017-01-25 08:00 | CR ---
DATE OF CONSULTATION: 01/24/2017 REFERRING PROVIDER: KENIA Mckeon REASON FOR CONSULTATION: Slurred speech and right-sided weakness. HISTORY OF PRESENT ILLNESS: Doyle Lee is a 61-year-old man with a history of hypertension and insulin-dependent diabetes who was at his baseline state of health until day of admission. It was Wednesday when he felt left leg was swollen. He took a nap. He woke up and had slurred speech. He was unable to lift his right arm up. His right leg was weak. He felt incoordination and imbalance. He was brought to [facility] emergency department. His blood pressure was 207/101. He states that his blood pressure runs high at times when he is at home. His symptoms lasted for 3 hours and they resolve. He currently does not have any weakness of right side of body or slurred speech. He feels back to his normal self. He denies any headaches. He has a history of chronic neck pain for which he goes to orthopedics. He had neck surgery in the past. He has intermittent back pain. He denies any seizures, dysphagia, diplopia or urinary incontinence. PAST MEDICAL HISTORY: Dyslipidemia. Hypertension. Insulin-dependent diabetes. Prostate enlargement. Cervical laminectomy. Cholecystectomy. Appendectomy. Bilateral hernia repair. CURRENT MEDICATIONS: - aspirin 81 mg p.o. daily - Plavix 75 mg p.o. daily - Lipitor 40 mg p.o. daily - chlorthalidone 12.5 mg p.o. daily - vitamin B12 1000 mcg p.o. daily - finasteride 5 mg p.o. daily - lisinopril 40 mg p.o. daily - metformin 1000 mg p.o. b.i.d. - metoprolol 50 mg p.o. b.i.d. - Toujeo insulin 40 units subcutaneous b.i.d. - nateglinide 60 mg by mouth three times a day - Prilosec 25 mg p.o. daily - tramadol 50 mg p.o. q.4 h p.r.n. FAMILY HISTORY: Noncontributory. SOCIAL HISTORY: He is . He denies alcohol or illicit drugs. He smokes five or six cigarettes a day. REVIEW OF SYSTEMS: All systems were reviewed and found to be noncontributory except as mentioned in the history present illness. PHYSICAL EXAMINATION: Blood pressure 126/72, pulse 88, respiratory rate 18, temperature 98. Heart regular rate and rhythm. Lungs clear to auscultation. No gross musculoskeletal abnormalities. Ears, nose and throat examination is within normal limits. Patient is awake, alert, oriented to place, person and time. Normal speech comprehension and repetition. Extraocular muscles are intact. No facial weakness. Tongue and uvula are midline. 5/5 strength. Deep tendon reflexes are 1+ in arms and knees and absent at ankles. He has decreased cold pinprick vibration sensation in his feet. There is no dysmetria or ataxia. Gait is normal. DIAGNOSTIC STUDIES: His MRI scan of brain was reviewed and showed small vessel ischemic disease of brain without any acute disease. MRA brain was within normal limits. Carotid ultrasound and echocardiogram are pending. His telemetry monitoring showed sinus rhythm. ASSESSMENT: 1. Suspected transient ischemic attack. 2. Hypertension with possible noncompliance to medications. 3. Insulin-dependent diabetes and dyslipidemia. 4. Diabetic peripheral neuropathy. PLAN: 1. Aspirin 81 mg p.o. daily and Plavix 75 mg p.o. daily. 2. Await results of his echocardiogram and carotid ultrasound. 3. Emphasized compliance with his medications. 4. Keep a blood pressure diary. 5. Lipitor 40 mg p.o. daily. 6. Follow with our office in 1 month after hospital discharge.
== END 2017-01-24 13:51 | disposition home or self-care (01) ==
LOC: M ED 17:52 → M ED INP 17:53 → M PCU 01-23 12:28
PROVIDERS: ADMIT Family Medicine; ATTEND Family Medicine
DX: G45.9 Transient cerebral ischemic attack, unspecified (principal); I16.0 Hypertensive urgency; E11.9 Type 2 diabetes mellitus without complications; I10 Essential (primary) hypertension; Z79.4 Long term (current) use of insulin; R91.1 Solitary pulmonary nodule; E83.42 Hypomagnesemia; M54.2 Cervicalgia; J44.9 Chronic obstructive pulmonary disease, unspecified; Z79.899 Other long term (current) drug therapy; Z79.82 Long term (current) use of aspirin; Z79.02 Long term (current) use of antithrombotics/antiplatelets; N40.0 Benign prostatic hyperplasia without lower urinary tract symptoms; E55.9 Vitamin D deficiency, unspecified; F17.210 Nicotine dependence, cigarettes, uncomplicated
CPT/HCPCS: 36415; 70450; 70544; 70551; 71010; 71020; 71260; 80048; 80053; 82550; 82553; 83735; 85025; 85027; 85610; 85730; 86850; 86900; 86901; 93000; 93041; 93880; 94760; 96360; 96374; 99285; J3475; Q9967

== ENCOUNTER 2017-02-04 08:52 | Day surgery (SDC) | payer MEDICARE, MEDICAID ==
[~2017-02-04] VITALS: Ht 190.5 cm; Wt 97.1 kg
[~2017-02-04 08:52] MED LIST changes: +ALBU17IN INH; +ASPI81TAEC PO; +ATOR40TA75 PO; +CHLO25TA PO; +CLOP75TA2 PO; +NATE60TA5 PO; +OMEP20CA3 PO; +TOUJ1.2I SC; +TRAM50TA2 PO; +VITA100067 PO
[2017-02-04] MEDS ORDERED: LR 1,000 ML IV ONE (09:00)
[2017-02-04] MEDS ORDERED: GLYCOPYRROLATE INJ 0.2 MG/ML 2 ML VIAL As Ordered ONE (10:01)
[2017-02-04] MEDS ORDERED: ROCURONIUM BROMIDE 50 MG/5 ML VIAL/SYRINGE As Ordered ONE (10:01)
[2017-02-04] MEDS ORDERED: NEOSTIGMINE 10 MG/10 ML VIAL (J2710) As Ordered ONE (10:01)
[2017-02-04] MEDS ORDERED: LIDOCAINE 2% INJ 100 MG/5 ML SDV (FOR ANES.) As Ordered ONE (10:01)
[2017-02-04] MEDS ORDERED: PROPOFOL 200 MG/20 ML VIAL As Ordered ONE (10:01)
[2017-02-04] MEDS ORDERED: ONDANSETRON 4MG/2ML VIAL (J2405) As Ordered ONE (10:01)
[2017-02-04] MEDS ORDERED: dexameTHASONE 4 MG/ML 1ML VIAL (J1100) As Ordered ONE (10:01)
[2017-02-04] MEDS ORDERED: fentaNYL 100 MCG/2 ML INJECTION (J3010) As Ordered ONE (10:04)
[2017-02-04] MEDS ORDERED: MIDAZOLAM INJ 2 MG/2 ML VIAL (J2250) As Ordered ONE (10:04)
[2017-02-04] MEDS ORDERED: CETACAINE SPRAY 20GM (FLOOR STOCK) As Ordered ONE (11:06)
[2017-02-04] MEDS ORDERED: EPINEPHrine 1MG/10ML SYRINGE 1.5IN As Ordered ONE (11:39)
--- NOTE | 2017-02-04 12:23 | RO ---
DATE OF PROCEDURE: 02/04/2017 PREOPERATIVE DIAGNOSIS: Abnormal chest CT. POSTOPERATIVE DIAGNOSIS: Abnormal chest CT. FINDINGS: Obstructed left upper lobe mass. PROCEDURE: Bronchoscopy with endobronchial ultrasound. SURGEON: Dr. Cipriano Anthony BROWNFIELD PROGRAM COORDINATOR: None. ANESTHESIA: General. ESTIMATED BLOOD LOSS: 5-10 mL. SPECIMENS OBTAINED: 1. Endobronchial biopsy left upper lobe. 2. Saddle brush left upper lobe. 3. Fine needle aspiration (FNA) left upper lobe. DESCRIPTION OF PROCEDURE: After informed consent was reviewed with the patient in the preoperative area, he was brought back to the OR. After a time-out was performed with two patient identifiers, identifying correct site and correct procedure, the patient was placed under general anesthesia with an 8.5 endotracheal tube. The case was then handed over to me. Time-out again was performed identifying two patient identifiers with correct site and correct procedure. Cetacaine spray was then used to anesthetize the airway and for lubrication of the bronchoscope. The bronchoscope was then inserted into the airway. All airways were suctioned. The trachea was midline. The sejal was sharp. The right mainstem bronchus had some clear mucus. RB 1 through 10 was normal without endobronchial lesions. There was banding and pitting throughout all airways. The bronchoscope was then inserted into the left mainstem which was significantly abnormal. Measured 4 cm from the sejal was a large mass near obstructing the left mainstem; however, the bronchoscope was able to be passed in the anterior portion revealing a patent left lower lobe. LB 6 through 10 were patent without endobronchial lesions. Lingula and left upper lobe were completely obscured by this large tumor. A picture was taken. Biopsies were taken. Endobronchial biopsies were taken of this lesion. There was minimal bleeding. I then performed FNA of the surrounding tissue under ultrasound guidance. Cell block was made of this tissue. I then performed a cytology brush. After all samples were taken and hemostasis assured, the bronchoscope was removed and the patient was extubated. He is in recovery. There are no observed complications. A postprocedure chest x-ray is pending. [facility]
[2017-02-04] MEDS ORDERED: ONDANSETRON 4MG/2ML VIAL (J2405) IV PRN (13:00)
[2017-02-04] MEDS ORDERED: LR 1,000 ML IV SCH (13:00)
[2017-02-04] MEDS ORDERED: fentaNYL 100 MCG/2 ML INJECTION (J3010) IV PRN (13:00)
--- NOTE | 2017-02-04 13:12 | REP ---
Portable chest x-ray: Single AP view. History: Postop. Comparison study: January 23, 2017. Comparison CT January 23, 2017. Findings: There is a large opacity in the left upper lung zone consistent with left upper lobe collapse. There is central perihilar fullness and a convex inferior margin of the opacities suggest central mass effect. There is no evidence of pneumothorax. The right lung is clear on today's radiograph. No pleural effusion is seen. The patient is status post cervical discectomy and fusion plating. Impression: Left upper lobe collapse with central hilar fullness again seen. No complication is identified. Signed by Son Martinez MD 02/04/2017 05:20 P
[2017-02-04 13:50] VITALS: BP 146/80
== END 2017-02-04 14:00 | disposition home or self-care (01) ==
LOC: M SDC 08:52
PROVIDERS: ATTEND Internal Medicine Pulmonary Disease
DX: C34.12 Malignant neoplasm of upper lobe, left bronchus or lung (principal); E11.9 Type 2 diabetes mellitus without complications; I10 Essential (primary) hypertension; F17.290 Nicotine dependence, other tobacco product, uncomplicated; R12 Heartburn; E78.00 Pure hypercholesterolemia, unspecified; M54.2 Cervicalgia; K21.9 Gastro-esophageal reflux disease without esophagitis; R29.898 Other symptoms and signs involving the musculoskeletal system; M12.9 Arthropathy, unspecified; I69.998 Other sequelae following unspecified cerebrovascular disease; N40.0 Benign prostatic hyperplasia without lower urinary tract symptoms; Z79.899 Other long term (current) drug therapy; Z79.01 Long term (current) use of anticoagulants; Z79.84 Long term (current) use of oral hypoglycemic drugs; Z79.82 Long term (current) use of aspirin
CPT/HCPCS: 31623; 31629; 31652; 71010; 88104; 88173; 88305; 88313; J1100; J2250; J2405; J2710; J3010

== ENCOUNTER → 2017-02-16 | Outpatient (CLI) | payer MEDICARE, MEDICAID ==
--- NOTE | 2017-02-21 11:34 | REP ---
Whole body CT PET scan: Comparison is the recent CT of the chest dated 01/23/2017. That tube identified a left hilar mass. Whole body PET CT scanning is performed from skull base to the upper thighs. Neck and supraclavicular areas: There is artifactual uptake in suboccipital muscles on the right. There is no other uptake in the neck and supraclavicular areas. Chest: There is confluent multifocal uptake in the patient's known left suprahilar mass with the maximal standard uptake value measuring 9.6. There is uptake within normal size left hilar nodes with the maximal standard uptake value measuring 11.9. There are no enlarged mediastinal nodes and there are no enlarged right hilar nodes and there is no uptake in mediastinal or right hilar nodes. Peripheral to the uptake in the left suprahilar mass and left hilar nodes, there is collapse of the left upper lobe. There are no other foci in the chest. Abdomen, pelvis and upper thighs: There are no hypermetabolic foci, specifically there are no adrenal or hepatic foci. There is nonspecific bowel uptake. Impression: There are confluent hypermetabolic foci in the patient's known left suprahilar mass. There is hypermetabolic uptake in the left hilar nodes. There is collapse of the left upper lobe. There are no other hypermetabolic foci. There is artifactual uptake in suboccipital muscles on the right. The study is performed with 10 mCi of F18 FDG. Signed by Tim Ramirez MD 02/21/2017 11:26 A
== END ==
LOC: M PLARAD 11:24
PROVIDERS: ATTEND Internal Medicine Pulmonary Disease
DX: C34.12 Malignant neoplasm of upper lobe, left bronchus or lung (principal)
CPT/HCPCS: 78815; A9552

== ENCOUNTER 2017-03-03 09:55 | Outpatient (RCR) | payer MEDICARE, MEDICAID ==
--- NOTE | 2017-03-16 08:01 | RADONC ---
RADIATION ONCOLOGY PROGRESS NOTE DATE: 03/15/2017 CHART NUMBER: [id number] Mr. Lee is presently at a dose of 1000 cGy to his left lung and is tolerating treatments quite well at this point with no complaints related to his radiation therapy. He is having no increased difficulty breathing or swallowing. The patient does report a new rash developing on his upper extremities bilaterally. This rashes develop since chemotherapy. He is scheduled to see his chemotherapy physicians tomorrow and I have made it clear to him that he needs to inform them of this situation. The rash appears to be some type of drug reaction. The meantime he is going to be getting Benadryl. He has also been instructed to come to the ER if this generalizes. PHYSICAL EXAMINATION: The patient does have a rash bilaterally on his upper extremities. The skin in the treated field however is in excellent condition with no evidence of radiation change present. The remainder of his physical exam remains unchanged as well.
--- NOTE | 2017-03-23 07:31 | RADONC ---
RADIATION ONCOLOGY PROGRESS NOTE DATE: 03/22/2017 CHART NUMBER: [id number] Mr. Lee is presently at a dose of 1800 cGy to his left lung and is tolerating treatments quite well at this point with no complaints related to his radiation therapy. He is having no difficulty swallowing or breathing. The patient's review of systems is noncontributory. He denies nausea, vomiting, fevers, chills, night sweats, diplopia, headaches, anxiety or depression, anorexia, weight loss, visual disturbances, chest pain, urinary or bowel difficulties, bone pain, or neurological problems. PHYSICAL EXAMINATION: The patient's skin is in good condition with no evidence of radiation change present. There is no moist or dry desquamation. The remainder of his physical exam remains unchanged. Mr. Lee is tolerating treatments quite well and radiation will continue as scheduled.
[2017-03-29] MEDS ORDERED: PLAV1TAB2 PO (16:19)
[2017-03-29] MEDS ORDERED: LEXA1TAB PO (16:19)
[2017-03-29] MEDS ORDERED: VENL37.52 PO (16:19)
[2017-03-29] MEDS ORDERED: FLUT1INH2 INH (16:19)
[2017-03-29] MEDS ORDERED: ZOFR8TAB PO (16:19)
[2017-03-29] MEDS ORDERED: LORA0.5T11 PO (16:19)
[2017-03-29] MEDS ORDERED: ASPI1TAB PO (16:19)
[2017-03-29] MEDS ORDERED: PROC10TA PO (16:19)
[2017-03-29] MEDS ORDERED: CHLO25TA PO (16:19)
--- NOTE | 2017-03-30 06:35 | RADONC ---
RADIATION ONCOLOGY PROGRESS NOTE DATE: 03/29/2017 CHART NUMBER: [id number] Mr. Lee is thus far at a dose of 2200 cGy to his left lung and was last treated on Wednesday03/24/2017. The patient came in today and apparently was hallucinating. He reported that his blood sugars were out of control. We took him immediately to the emergency room for evaluation. At this time, we await his stabilization. If he is better we can reinitiate treatment tomorrow.
== END 2017-04-01 ==
LOC: M ONCR 09:55
PROVIDERS: ATTEND Radiology Radiation Oncology
DX: C34.12 Malignant neoplasm of upper lobe, left bronchus or lung (principal)

== ENCOUNTER 2017-03-29 13:21 | Inpatient (IN) | payer MEDICARE, MEDICAID ==
[~2017-03-29] VITALS: Ht 190.5 cm; Wt 100.0 kg
[2017-03-29] MEDS ORDERED: NS 1,000 ML IV SCH (13:57)
--- NOTE | 2017-03-29 14:26 | REP ---
CT Head without contrast HISTORY: Altered mental status COMPARISON: 01/22/2017 Areas of decreased attenuation are present in the periventricular white matter. This represents small-vessel ischemic disease. There is no intraparenchymal hemorrhage, acute infarct, mass or midline shift. The ventricular system and cortical sulci are dilated consistent with minimal volume loss. There is no extra cerebral collection. There is no fracture. The visualized sinuses are clear. IMPRESSION: 1. Small vessel ischemic disease. 2. Minimal volume loss. Signed by Wallace Stewart MD 03/29/2017 02:17 P
[2017-03-29] MEDS ORDERED: methylPREDNISolone INJ 125 MG/2 ML VIAL (J2930) IV ONE (14:30)
[2017-03-29] MEDS ORDERED: ALBUTEROL SULFATE 2.5 MG/0.5 ML INH NEB SOLN INH ONE ×2 (14:30→17:30)
[2017-03-29] MEDS ORDERED: IPRATROPIUM 0.5MG/ALBUTEROL 2.5MG INH SOL UD 3ML (DUONEB)(J7620) NEB ONE ×2 (14:30→17:30)
[2017-03-29 14:42] LABS: ABG BASE EXCESS 2.7 (-2.0-2.0); ABG HCO3 26.4 MEQ/L (22.0-26.0); ABG PARTIAL PRESSURE CO2 37.2 mmHg (35.0-45.0); ABG PARTIAL PRESSURE O2 63.4 mmHg (75.0-100.0); ABG STANDARD HCO3 26.8 MEQ/L (22.0-26.0); ABG TOTAL CO2 27.5 MEQ/L (23.0-31.0); ABG pH (ARTERIAL) 7.469 UNITS (7.350-7.450)
[2017-03-29 14:54] LABS: MEAN CORPUSCULAR HEMOGLOBIN 28.8 pg (27.0-33.0); MEAN CORPUSCULAR HGB CONC 34.7 g/dl (32.0-36.5); MEAN CORPUSCULAR VOLUME 82.9 fl (80.0-96.0); PLATELET COUNT, AUTOMATED 291 10^3/uL (150-450); RED CELL DISTRIBUTION WIDTH 15.7 % (11.5-14.5); WHITE BLOOD COUNT 10.7 10^3/uL (4.0-10.0)
[2017-03-29 14:59] LABS: ADD MANUAL DIFFER YES; DIFF SLIDE NUMBER 295; LEFT SHIFT POS FLAG; POSITIVE DIFF POS FLAG; POSITIVE MORPH POS FLAG
[2017-03-29] MEDS ORDERED: PIPERACILLIN/TAZOBACTAM SOD 4.5 GM in APPROPRIATE DILUENT 1 EA IV ONE (15:00)
[2017-03-29] MEDS ORDERED: NS IV ONE (15:00)
[2017-03-29] MEDS ORDERED: DILUENT IV ONE (15:00)
--- NOTE | 2017-03-29 15:13 | REP ---
Clinical: Shortness of breath. Comparison: 02/26/2017. Findings: Left apical pneumothorax is appreciated along with extensive consolidations involving the left hemithorax. The right hemithorax appears relatively clear although a stable 14 mm densities identified in the right upper lung zone. Skeletal structures are intact. Impression: Small left apical pneumothorax. Diffuse opacities involving the left hemithorax. 14 mm ovoid nodule in the right upper lung zone. Signed by Jeff Bravo MD 03/29/2017 03:05 P
[2017-03-29 15:21] LABS: ALBUMIN 1.8 GM/DL (3.2-5.2); ALBUMIN/GLOBULIN RATIO 0.46 (1.00-1.93); ALKALINE PHOSPHATASE 90 U/L (45-117); ALT/SGPT 26 U/L (12-78); ANION GAP 12 MEQ/L (8-16); AST/SGOT 25 U/L (7-37); BILIRUBIN,DIRECT 0.3 MG/DL (0.0-0.2); BILIRUBIN,TOTAL 0.5 MG/DL (0.2-1.0); BLOOD UREA NITROGEN 27 MG/DL (7-18); CALCIUM LEVEL 8.3 MG/DL (8.8-10.2); CARBON DIOXIDE LEVEL 26 MEQ/L (21-32); CHLORIDE LEVEL 91 MEQ/L (98-107); CREATININE FOR GFR 1.26 MG/DL (0.70-1.30); GLOMERULAR FILTRATION RATE > 60.0 (>49); SODIUM LEVEL 129 MEQ/L (136-145); TOTAL PROTEIN 5.7 GM/DL (6.4-8.2)
[2017-03-29 15:28] LABS: GLUCOSE, FASTING 474 MG/DL (80-110)
[2017-03-29] MEDS ORDERED: HumuLIN R (REGULAR) INSULIN (NovoLIN R) **100U/ML** PER UNIT IV ONE (15:45)
[2017-03-29 15:46] LABS: BANDS 4 % (< 11)
--- NOTE | 2017-03-29 15:48 | REP ---
Clinical: Pneumothorax. Comparison: 01/23/2017. Findings: A small left apical pneumothorax is appreciated. There is near complete opacification and consolidation of the left upper lobe with what appears to be obstructed proximal left upper lobe main bronchus with subsequent central cavitation versus abnormally dilated mid bronchi along with scattered air bronchograms. Moderate left lower lobe consolidation/atelectasis is also appreciated without significant pleural effusion. The right hemithorax is relatively well aerated and clear with only minimal posterior basilar dependent changes noted. Atherosclerotic changes of the aorta and coronary arteries noted without aortic aneurysm or cardiomegaly. No obvious pericardial effusion. Mediastinal and left hilar adenopathy cannot be excluded. Surrounding musculoskeletal structures are intact without focal osseous abnormality. Limited upper abdomen demonstrates stable low density right adrenal mass consistent with adenoma and unchanged compared to 2015. Impression: 1. Small left apical pneumothorax along with near complete consolidation to the left upper lobe with obstruction of the right upper lobe bronchus followed by cavitary lesion versus distended main bronchi and subsequent air bronchograms. Mild to moderate left lower lobe atelectasis. No pleural effusion. Signed by Jeff Bravo MD 03/29/2017 03:40 P
[2017-03-29] MEDS ORDERED: VENL37.52 PO (16:19)
[2017-03-29] MEDS ORDERED: CHLO25TA PO (16:19)
[2017-03-29] MEDS ORDERED: LEXA1TAB PO (16:19)
[2017-03-29] MEDS ORDERED: PLAV1TAB2 PO (16:19)
[2017-03-29] MEDS ORDERED: ASPI1TAB PO (16:19)
[2017-03-29] MEDS ORDERED: LORA0.5T11 PO (16:19)
[2017-03-29] MEDS ORDERED: ZOFR8TAB PO (16:19)
[2017-03-29] MEDS ORDERED: FLUT1INH2 INH (16:19)
[2017-03-29] MEDS ORDERED: PROC10TA PO (16:19)
[2017-03-29] MEDS ORDERED: VANCOMYCIN HCL 1,000 MG, VIAL MATE ADAPTER 1 EACH in D5W 250 ML IV ONE (17:00)
--- NOTE | 2017-03-29 18:38 | ECGEPIP ---
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
--- NOTE | 2017-03-29 19:40 | REP ---
Portable chest x-ray: Sitting AP view. History: Repeat chest x-ray. Left-sided pneumothorax. Comparison chest x-ray is from 02:49 p.m. on this date. Findings: There is nearly complete opacification of the left hemithorax. There is a further decrease in the amount of aeration in the left upper lobe. A small left-sided pneumothorax is seen but this is unchanged from the earlier film. A pulmonary nodule is noted on the right consistent with a metastasis. Impression: Stable small left-sided pneumothorax. Progressive, near complete opacification left lung. Metastatic nodule on the right. Otherwise no significant change. Signed by Son Martinez MD 03/29/2017 08:35 P
[2017-03-29] MEDS ORDERED: GLUCOSE 4 GM CHEW TABLET PO PRN (20:00)
[2017-03-29] MEDS ORDERED: GLUCAGON FOR INJ 1 MG VIAL (J1610) SC PRN (20:00)
[2017-03-29] MEDS ORDERED: DEXTROSE 50% 50 ML SYRINGE IV PRN (20:00)
[2017-03-29] MEDS ORDERED: PROCHLORPERAZINE 5 MG TAB (S0183) PO PRN (20:00)
[2017-03-29] MEDS ORDERED: HumuLIN R (REGULAR) INSULIN (NovoLIN R) **100U/ML** PER UNIT SC ONE (20:00)
[2017-03-29] MEDS ORDERED: LORazepam 0.5 MG TAB PO PRN (20:00)
[2017-03-29] MEDS ORDERED: IPRATROPIUM 0.5MG/ALBUTEROL 2.5MG INH SOL UD 3ML (DUONEB)(J7620) NEB PRN (20:15)
[2017-03-29] MEDS ORDERED: ONDANSETRON 4MG/2ML VIAL (J2405) IV PRN (20:15)
[2017-03-29 20:58] LABS: ANION GAP 12 MEQ/L (8-16); BLOOD UREA NITROGEN 25 MG/DL (7-18); CALCIUM LEVEL 7.7 MG/DL (8.8-10.2); CARBON DIOXIDE LEVEL 24 MEQ/L (21-32); CHLORIDE LEVEL 99 MEQ/L (98-107); CREATININE FOR GFR 1.06 MG/DL (0.70-1.30); GLOMERULAR FILTRATION RATE > 60.0 (>49); POTASSIUM SERUM 3.9 MEQ/L (3.5-5.1); SODIUM LEVEL 135 MEQ/L (136-145)
[2017-03-29 21:14] LABS: GLUCOSE, FASTING 447 MG/DL (80-110)
[2017-03-29] MEDS ORDERED: PROHANCE 279.3MG/ML 5ML VIAL (A9576) As Ordered ONE (21:15)
[2017-03-29] MEDS ORDERED: PROHANCE 279.3MG/ML 15ML VIAL (A9576) As Ordered ONE (21:16)
--- NOTE | 2017-03-29 21:50 | REPUSA ---
MRI of the brain. Clinical history: sickness. Comparison: 01/23/2017. Technique: Multiecho multiplanar MRI images of the brain were obtained before and after administratio n of 18 mL of Prohance intravenous gadolinium contrast. Diffusion weighted images with ADC mapping wa s also obtained. Findings: The ventricles and sulci are symmetric bilaterally. The brain parenchyma demonstrates numerous T2 hyp erintense lesions in the subcortical and periventricular white matter bilaterally. These findings are stable since the prior study. There is no midline shift, mass effect, or extra-axial fluid collectio n. The midline intracranial structures do not demonstrate any gross abnormalities. The cervical crani al junction is intact. The orbits are unremarkable. The visualized paranasal sinuses and mastoid air cells are clear. The osseous structures and superficial soft tissues are unremarkable. The vascular s tructures demonstrate appropriate flow voids. The vascular structures enhance appropriately. No abnor mal enhancing lesions are seen. Impression: No significant change in subcortical T2 hyperintense lesions, consistent with moderate ch ronic small vessel ischemic disease. No abnormal enhancing lesions identified. No evidence of acute i nfarct or hemorrhage.
[2017-03-29] MEDS: LEVEMIR (INSULIN DETEMIR) 1 UNITS/0.01ML SC SCH (22:14)
[2017-03-29] MEDS: HumaLOG INSULIN (NovoLOG) PER UNIT SC SCH (22:14)
[2017-03-29 23:06] VITALS: BP 116/72
--- NOTE | 2017-03-29 23:32 | HPE ---
DATE OF ADMISSION: 03/29/2017 CRITICAL CARE NOTE PRIMARY CARE PROVIDER: Dr. Joel Martel TYRE FITTER: Dr. Anthony ONCOLOGIST: Dr. Amos RADIATION ONCOLOGIST: Dr. Lindquist CHIEF COMPLAINT: Hallucinations, altered mental status and also left-sided chest pain. 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 The patient reported that for the past month or so, the patient has been getting progressively poor oral intake, getting generalized weaker and for the past 1 week, the patient has been getting progressively more confused, talking delusional thoughts, also has memory problems. The patient had transient ischemic attack (TIA) 01/23/2017. Denies any fevers, chills. Reported nausea, vomiting, poor oral intake. Also reported left-sided chest pain that just developed in the emergency room; otherwise the patient is a poor historian. No sick contacts. No recent travel. Chronically has cough and shortness of breath. Limited history otherwise. In the emergency room, the patient was found to have complete opacification of the patient's left lung with small pneumothorax and lactic acidosis, tachycardia. Subsequently, request was made to admit the patient to the hospitalist service for further workup. PAST MEDICAL HISTORY: Hypertension. Type 2 diabetes. TIA. Dyslipidemia. BPH. Diverticulosis. Chronic lower back pain. Bilateral rotator cuff injury. Chronic neck pain. Pulmonary nodule. Squamous cell lung cancer of the left lung. ALLERGIES: No known drug allergies. PAST SURGICAL HISTORY: Hernia repair. Cholecystectomy. Tonsillectomy. Neck surgery. Appendectomy. Lung mass biopsy. SOCIAL HISTORY: Quit smoking a week ago. Smokes 1-2 packs per day for 40+ years. Denies alcohol use. Lives at home. REVIEW OF SYSTEMS: Limited secondary to patient's mental status. Reported chest pain, shortness of breath and cough. HOME MEDICATIONS: - Ventolin inhaler every 4 hours as needed - aspirin 81 mg by mouth daily - atorvastatin 40 mg by mouth daily - chlorthalidone 12.5 mg by mouth daily - Plavix 75 mg by mouth daily - vitamin B12 1000 mcg by mouth daily - Lexapro 10 mg by mouth daily - finasteride 5 mg by mouth nightly - fluticasone inhaler twice a day - lisinopril 40 mg by mouth daily - lorazepam 0.5 mg by mouth twice a day as needed - metformin 1000 mg by mouth twice a day - metoprolol 50 mg by mouth twice a day - Zofran 8 mg by mouth twice a day as needed - prochlorperazine 20 mg by mouth twice a day as needed - Toujeo 40 units subcu twice a day - tramadol 50 mg by mouth every 4 hours as needed - venlafaxine 75 mg by mouth nightly - vitamin D 1000 units by mouth daily FAMILY HISTORY: Denies family history of coronary artery disease. Generally history limited. PHYSICAL EXAMINATION: VITAL SIGNS: Temperature 99.4, pulse 112, respirations 20, blood pressure 101/62, pulse oximetry 99% on 100% nonrebreather. GENERAL: Patient alert, comfortable, frail, in no acute distress. HEENT: Normocephalic, atraumatic. PULMONARY: Diminished breath sounds, left-sided with rhonchi, right-sided mild wheeze. CARDIAC: Tachycardia, S1, S2. ABDOMEN: Soft, nontender. EXTREMITIES: No clubbing, cyanosis or edema. NEUROLOGIC: Able to move all four extremities. Cranial nerves II-XII grossly intact. EKG: Sinus tachycardia. No ST segment changes. LABORATORY: WBC 10.7, hemoglobin and hematocrit 10.1 over 29.1, platelets 291. Chemistry: Sodium 135, potassium 3.9, chloride 99, bicarbonate 24, BUN 25, creatinine 1.06, glucose 447, ionized calcium 4.3, lactic acid initially 2.7, currently 1.7. CT of the lung shows a small left apical pneumothorax with complete consolidation of the left upper lobe with obstruction of right upper lobe bronchus followed by cavitary lesion versus distention of main bronchi and subsequent air bronchogram. Mild to moderate left lower lobe atelectasis. ASSESSMENT AND PLAN: This is a 61-year-old male patient with underlying medical history of squamous cell lung cancer, hypertension, diabetes, type2, dyslipidemia, BPH, diverticulosis, chronic back pain, bilateral rotator cuff injury, chronic neck pain, pulmonary nodules, squamous cell lung cancer, transient ischemic attack, admitted with encephalopathy and small apical pneumothorax with possible postobstructive pneumonia. PROBLEM #1: Sepsis secondary to likely pneumonia. Patient with tachycardia, lactic acidosis, was immunocompromised due to cancer and chemoradiation therapy, and altered mental status. IV fluids have been given; meropenem, vancomycin for now. Infectious disease consulted, respiratory panel, blood cultures, sputum culture. CT of the lung appreciated. Possible postobstructive pneumonia. CT of the head appreciated. PROBLEM #2: Encephalopathy with delusional thoughts. Possibly secondary to underlying infection versus malignancy. Will followup ionized calcium, MRI with and without contrast of the brain, notify infectious disease as mentioned above. No focal neurological deficits. PROBLEM #3: Hyperglycemia. Will check A1c. Insulin has been given, basal bolus. Adjust as needed. Fingerstick every 2 hours for overnight. Give additional insulin regimen. IV fluids have been given. PROBLEM #4: Dehydration. IV fluids. Followup electrolytes. PROBLEM #5: Hyponatremia secondary to hyperglycemia. Currently corrected. PROBLEM #6: Apical small pneumothorax. Case discussed with Dr. Braun and Dr. Terrazas. No intervention at this time. Will monitor carefully. If patient's symptoms change, will get stat x-ray and ask Dr. Terrazas for chest tube. In the meantime, will place the patient on 100% nonrebreather. PROBLEM #7: Postobstructive pneumonia. Case discussed with Dr. Anthony, Dr. Braun and Dr. Terrazas. No intervention at this time. Continue radiation therapy as tolerated. The patient is not a candidate for stenting, as per Dr. Anthony. Continue antibiotics as above. PROBLEM #8: Possible asthma bronchospasm. The patient has some wheeze. Solu-Medrol, nebulizer treatment. Continue antibiotics as above. PROBLEM #9: History of transient ischemic attack. Continue home medication. MRI has been ordered. Neurological check. Patient continued on aspirin, statin, Plavix. PROBLEM #10: Dyslipidemia. Continue statin. PROBLEM #11: Hypertension. Given patient with infection and borderline blood pressure, holding blood pressure medication. PROBLEM #12: Squamous cell lung cancer. Case discussed with Dr. Amos and Dr. Lindquist. Continue further radiation as per Dr. Lindquist. Dr. Braun has been consulted. DEEP VEIN THROMBOSIS (DVT) PROPHYLAXIS. Heparin subcu. DISPOSITION: Patient is DO NOT RESUSCITATE/DO NOT INTUBATE (DNR/DNI). Poor long-term prognosis.
[2017-03-29] MEDS: FINASTERIDE 5 MG TAB PO SCH (23:47)
[2017-03-29] MEDS: MEROPENEM INJ 1 GM in APPROPRIATE DILUENT 1 EA IV SCH (23:48)
[2017-03-29] MEDS: SENOKOT S TAB PO SCH (23:48)
[2017-03-29] MEDS: methylPREDNISolone INJ 40 MG/1 ML VIAL (J2920) IV SCH (23:48)
[2017-03-29] MEDS: KCL 20MEQ in NS 1000ML 1,000 ML IV SCH (23:49)
[2017-03-30] VITALS (20 sets, daily range): BP systolic 91–163; BP diastolic 58–86; O2SAT 97–98
[2017-03-30] MEDS: VENLAFAXINE **XR** 75MG CAPSULE PO SCH ×2 (01:00→21:14)
[2017-03-30] MEDS: VANCOMYCIN HCL 1,000 MG, VIAL MATE ADAPTER 1 EACH in D5W 250 ML IV SCH ×3 (01:14→17:21)
[2017-03-30] MEDS: IPRATROPIUM 0.5MG/ALBUTEROL 2.5MG INH SOL UD 3ML (DUONEB)(J7620) NEB SCH ×4 (01:39→19:44)
[2017-03-30 02:58] LABS: ANION GAP 9 MEQ/L (8-16); BLOOD UREA NITROGEN 24 MG/DL (7-18); CALCIUM LEVEL 8.7 MG/DL (8.8-10.2); CARBON DIOXIDE LEVEL 28 MEQ/L (21-32); CHLORIDE LEVEL 98 MEQ/L (98-107); CREATININE FOR GFR 0.97 MG/DL (0.70-1.30); GLOMERULAR FILTRATION RATE > 60.0 (>49); POTASSIUM SERUM 3.5 MEQ/L (3.5-5.1); SODIUM LEVEL 135 MEQ/L (136-145)
[2017-03-30 03:04] LABS: GLUCOSE, FASTING 404 MG/DL (80-110)
[2017-03-30] MEDS ORDERED: HumaLOG INSULIN (NovoLOG) PER UNIT SC ONE (03:15)
[2017-03-30 05:06] LABS: MEAN CORPUSCULAR HEMOGLOBIN 28.5 pg (27.0-33.0); MEAN CORPUSCULAR HGB CONC 33.8 g/dl (32.0-36.5); MEAN CORPUSCULAR VOLUME 84.3 fl (80.0-96.0); PLATELET COUNT, AUTOMATED 275 10^3/uL (150-450); RED CELL DISTRIBUTION WIDTH 15.9 % (11.5-14.5)
[2017-03-30 05:26] LABS: ALBUMIN 1.5 GM/DL (3.2-5.2); ALBUMIN/GLOBULIN RATIO 0.32 (1.00-1.93); ALKALINE PHOSPHATASE 68 U/L (45-117); ALT/SGPT 28 U/L (12-78); ANION GAP 7 MEQ/L (8-16); AST/SGOT 30 U/L (7-37); BILIRUBIN,TOTAL 0.3 MG/DL (0.2-1.0); BLOOD UREA NITROGEN 23 MG/DL (7-18); CALCIUM LEVEL 8.7 MG/DL (8.8-10.2); CARBON DIOXIDE LEVEL 30 MEQ/L (21-32); CHLORIDE LEVEL 101 MEQ/L (98-107); CREATININE FOR GFR 0.81 MG/DL (0.70-1.30); GLOMERULAR FILTRATION RATE > 60.0 (>49); GLUCOSE, FASTING 341 MG/DL (80-110); POTASSIUM SERUM 3.5 MEQ/L (3.5-5.1); SODIUM LEVEL 138 MEQ/L (136-145); TOTAL PROTEIN 6.2 GM/DL (6.4-8.2)
--- NOTE | 2017-03-30 05:41 | ECGEPIP ---
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
[2017-03-30] MEDS: HEPARIN SOD (PORCINE) 5000 UNITS/ML VIAL SC SCH ×3 (06:05→21:15)
[2017-03-30] MEDS: methylPREDNISolone INJ 40 MG/1 ML VIAL (J2920) IV SCH ×3 (06:06→23:19)
[2017-03-30] MEDS: MEROPENEM INJ 1 GM in APPROPRIATE DILUENT 1 EA IV SCH ×3 (06:06→23:19)
[2017-03-30] MEDS: HumaLOG INSULIN (NovoLOG) PER UNIT SC SCH ×4 (07:34→21:15)
--- NOTE | 2017-03-30 07:35 | IPNPDOC ---
Text Note Date of Service The patient was seen on 03/30/17. NOTE Subjective: Patient seen and examined at bedside. States he is feeling better today. Denies any worsening shortness of breath, chest pain, abdominal pain. States he does have a cough productive of clear sputum. Objective: General: NAD, lying comfortably in bed HEENT: NC/AT, EOMI, PERRL Lungs: coarse breath sounds L>R Heart: +S1S2, RRR Abd: soft, NT, +BS Ext: no edema Psych: AAOx3 ASSESSMENT AND PLAN: This is a 61-year-old male patient with underlying medical history of squamous cell lung cancer, hypertension, diabetes, type2, dyslipidemia, BPH, diverticulosis, chronic back pain, bilateral rotator cuff injury, chronic neck pain, pulmonary nodules, squamous cell lung cancer, transient ischemic attack, admitted with encephalopathy and small apical pneumothorax with possible postobstructive pneumonia. #Sepsis - likely secondary to likely pneumonia - possibly postobstructive - immunocompromised due to cancer and chemoradiation therapy, - continue IVF, broad spectrum Abx - vanc/tanesha - ID c/s pending #Encephalopathy - likely metabolic encephalopathy - appears to have resolved #DM - uncontrolled - ISS #BPH - finasteride #Hyponatremia secondary to hyperglycemia. Currently corrected. #Apical small pneumothorax - Case has been discussed with Dr. Braun and Dr. Terrazas. No intervention at this time. Will monitor carefully. If patient's symptoms change, will get stat x-ray and ask Dr. Terrazas for chest tube. In the meantime, will place the patient on 100% nonrebreather. #Postobstructive pneumonia. Case discussed with Dr. Anthony, Dr. Braun and Dr. Terrazas. No intervention at this time. Continue radiation therapy as tolerated. The patient is not a candidate for stenting, as per Dr. Anthony. Continue antibiotics as above. #Possible asthma bronchospasm. The patient has some wheeze. Solu-Medrol, nebulizer treatment. Continue antibiotics as above. #History TIA - MRI brain no acute findings - Patient continued on aspirin, statin,Plavix. #Dyslipidemia. Continue statin. #Hypertension - Holding blood pressure medication for now (BB, ACEI) #Squamous cell lung cancer - Case discussed with Dr. Amos and Dr. Lindquist. -Continue further radiation as per Dr. Lindquist. Dr. Braun has been consulted. #nicotine abuse - recently quit smoking - not interested in NRT #anxiety/depression - lexapro and venlafaxine as per home regimen - lorazepam prn on hold from home regimen #DEEP VEIN THROMBOSIS (DVT) PROPHYLAXIS. Heparin subcu. DISPOSITION: Patient is DO NOT RESUSCITATE/DO NOT INTUBATE (DNR/DNI). Poor long-term prognosis. VS,Fishbone, I+O VS, Fishbone, I+O Laboratory Tests 03/29/17 14:44 Red Blood Count 3.51 L, Mean Corpuscular Volume 82.9, Mean Corpuscular Hemoglobin 28.8, Mean Corpuscular Hemoglobin Concent 34.7, Red Cell Distribution Width 15.7 H, Lymphocytes # (Auto) 03/29/17 20:12 Calcium Level 7.7 L, Total Creatine Kinase 133 03/30/17 02:14 Calcium Level 8.7 L, Total Creatine Kinase 140 03/30/17 04:53 Red Blood Count 3.12 L, Mean Corpuscular Volume 84.3, Mean Corpuscular Hemoglobin 28.5, Mean Corpuscular Hemoglobin Concent 33.8, Red Cell Distribution Width 15.9 H, Calcium Level 8.7 L, Aspartate Amino Transf (AST/SGOT ) 30, Alanine Aminotransferase (ALT/SGPT) 28, Alkaline Phosphatase 68, Total Bilirubin 0.3, Total Protein 6.2 L, Albumin 1.5 L Vital Signs Date Time Temp Pulse Resp B/P (MAP) Pulse Ox O2 Delivery O2 Flow Rate FiO2 03/30/17 05:00 97 130/73 (92) 99 Non-Rebreather 03/30/17 04:00 98.3 22 03/30/17 01:50 15.0 I&O- Last 24 Hours up to 6 AM 03/31/17 06:00 Intake Total 900 ml Balance 900 ml KEVIN CAMPBELL MD Mar 30, 2017 07:17
[2017-03-30] MEDS: KCL 20MEQ in NS 1000ML 1,000 ML IV SCH ×4 (07:42→20:40)
[2017-03-30] MEDS: LEVEMIR (INSULIN DETEMIR) 1 UNITS/0.01ML SC SCH ×2 (07:42→20:41)
[2017-03-30] MEDS: ESCITALOPRAM OXALATE 10 MG TAB (LEXAPRO) PO SCH (08:44)
[2017-03-30] MEDS: VITAMIN D 1,000 INTERNATIONAL UNITS TABLET PO SCH (08:44)
[2017-03-30] MEDS: SENOKOT S TAB PO SCH ×2 (08:44→21:14)
[2017-03-30] MEDS: ATORVASTATIN 20 MG TAB PO SCH (08:44)
[2017-03-30] MEDS: CYANOCOBALAMIN 500 MCG TAB PO SCH (08:45)
[2017-03-30] MEDS: ASPIRIN 81 MG ENTERIC TAB PO SCH (08:45)
[2017-03-30] MEDS ORDERED: CLOPIDOGREL 75 MG TAB PO SCH (09:00)
[2017-03-30] MEDS ORDERED: ALBUTEROL SULFATE 2.5 MG/0.5 ML INH NEB SOLN NEB PRN (10:00)
[2017-03-30 10:26] LABS: T UPTAKE 45 % (33-40); THYROXINE (T4) 7.1 UG/DL (4.5-12.0)
--- NOTE | 2017-03-30 10:30 | ECGEPIP ---
Stationary ECG Study [facility] Test Date: 2017-03-30 Pat Name: CARITO COVARRUBIAS Department: Room: [place] [address] Gender: M Reed Press Feeder: FAROOQ : 1955 Requested By: KEVIN Ribeiro Order Number: [id number] Reading MD: Leona Rodríguez Measurements Intervals [place] Rate: 167 P: [place]: 0 QRS: 37 QRSD: 89 T: 0 QT: 261 QTc: 436 Interpretive Statements ATRIAL FIBRILLATION WITH RAPID VENTRICULAR RESPONSE NONSPECIFIC ST & T-WAVE ABNORMALITY ABNORMAL RHYTHM ECG RHYTHM CHANGE NEW C/W 03/29/17 Electronically Signed On 03-30-2017 10:30:11 EST by Leona Rodríguez
[2017-03-30] MEDS ORDERED: NS 1,000 ML IV ONE (11:30)
[2017-03-30] MEDS ORDERED: DIGOXIN INJ 0.5 MG/2 ML AMP (J1160) IV STA ×2 (12:01→12:18)
[2017-03-30 12:09] LABS: MEAN CORPUSCULAR HEMOGLOBIN 28.7 pg (27.0-33.0); MEAN CORPUSCULAR HGB CONC 34.2 g/dl (32.0-36.5); MEAN CORPUSCULAR VOLUME 83.9 fl (80.0-96.0); PLATELET COUNT, AUTOMATED 323 10^3/uL (150-450); WHITE BLOOD COUNT 13.2 10^3/uL (4.0-10.0)
[2017-03-30 12:18] LABS: ADD MANUAL DIFFER YES; ALBUMIN 1.6 GM/DL (3.2-5.2); ALBUMIN/GLOBULIN RATIO 0.43 (1.00-1.93); ALKALINE PHOSPHATASE 116 U/L (45-117); ALT/SGPT 42 U/L (12-78); ANION GAP 12 MEQ/L (8-16); AST/SGOT 56 U/L (7-37); BILIRUBIN,TOTAL 0.4 MG/DL (0.2-1.0); BLOOD UREA NITROGEN 22 MG/DL (7-18); CALCIUM LEVEL 8.3 MG/DL (8.8-10.2); CARBON DIOXIDE LEVEL 24 MEQ/L (21-32); CHLORIDE LEVEL 102 MEQ/L (98-107); CREATININE FOR GFR 0.75 MG/DL (0.70-1.30); DIFF SLIDE NUMBER 257; GLOMERULAR FILTRATION RATE > 60.0 (>49); LEFT SHIFT POS FLAG; POSITIVE DIFF POS FLAG; POSITIVE MORPH POS FLAG; POTASSIUM SERUM 3.6 MEQ/L (3.5-5.1); SODIUM LEVEL 138 MEQ/L (136-145); TOTAL PROTEIN 5.3 GM/DL (6.4-8.2)
[2017-03-30 12:21] LABS: GLUCOSE, FASTING 405 MG/DL (80-110)
[2017-03-30 13:31] LABS: ANISOCYTOSIS 1+; BANDS 4 % (< 11); HYPOCHROMASIA 1+
--- NOTE | 2017-03-30 14:45 | CR ---
DATE OF CONSULTATION: 03/30/2017 REFERRING PHYSICIAN: Xenia Anguiano MD REASON FOR CONSULTATION: History of squamous cell carcinoma of the left upper lobe, T2bN1, stage IIB, treated with two cycles of concurrent chemoradiation weekly carboplatin and Taxol recently admitted for encephalopathy, currently on vancomycin. MRI of the brain unremarkable. HISTORY OF PRESENT ILLNESS: Doyle Lee is a 61-year-old gentleman who I saw initially in consultation on 02/18/2017 for a large left hilar mass, 6.5 cm, encasing the pulmonary artery. PET scan at that time showed hypermetabolic uptake in a left suprahilar mass as well as the left hilar and the lymph nodes. He was deemed not to be a surgical candidate and hence was started on concurrent chemoradiation. His last chemotherapy was on 02/20/2017. He was admitted to [facility] on 03/29/2017 for encephalopathy with delusional thoughts and memory problems. Clinically, at the bedside the patient is lying in bed with his family around him. He begins to ask questions about hospice. He however denies any pain. He is breathing comfortably and denies any shortness of breath and dyspnea on exertion. No fevers or chills. PAST MEDICAL HISTORY: Hypertension. Hyperlipidemia. Gastroesophageal reflux disease (GERD). Diabetes. Vitamin D deficiency. Chronic obstructive pulmonary disease (COPD). Transient ischemic attack (TIA). Nicotine dependence. PAST SURGICAL HISTORY: Bilateral hernia surgery. Laminectomy and fusion of C5-C7 in 2007. Cholecystectomy. Tonsillectomy. Appendectomy. MEDICATIONS AT HOME: Include albuterol, metoprolol, Toujeo, omeprazole, Starlix , vitamin D, metformin, vitamin B12, finasteride, chlorthalidone, Lipitor, Plavix, lisinopril, aspirin. ALLERGIES: No known drug allergies. SOCIAL HISTORY: He has a greater than 80 pack year history of tobacco use. No alcohol. 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 He is . He has three children and grandchildren. His , children and grandchildren at his bedside. FAMILY HISTORY: Mother had colon cancer. Sister had cholangiocarcinoma. Father had an unknown skin cancer. PHYSICAL EXAMINATION: VITAL SIGNS: Temperature is 98.9, blood pressure 91/66. He is on a nonrebreather at 4 liters per minute. Heart rate is 164. Pulse oximetry is 96% . HEENT: No pallor. Anicteric sclerae. Moist mucous membranes. Oropharynx is clear. NECK: Supple. HEART: Tachycardic, no appreciable murmurs. LUNGS: He has some scattered wheezes. No rhonchi or rales. ABDOMEN: Soft. Nontender, nondistended. No hepatosplenomegaly or masses. EXTREMITIES: No edema. Labs and studies as detailed above. IMPRESSION: 61-year-old gentleman with squamous cell carcinoma of the left upper lobe, T2bN1, Stage IIB, being treated with concurrent chemoradiation with weekly carboplatin and Taxol, having received two doses, now admitted for encephalopathy. RECOMMENDATIONS: 1. I would hold his chemotherapy at this time. Will recommend discussing with Dr. Lindquist if the patient can continue as an inpatient, as the patient is currently stable hemodynamically. 2. I discussed hospice with the patient as he requested hospice and I gave him appropriate information regarding hospice as well. Upon discussion with his family at his bedside, he decides against not enrolling in hospice at this time. Per his family, he also at one point decided to leave against medical advice from the ICU. We recommend followup visit as an outpatient for continued discussion about goals of care upon discharge. MTDD
--- NOTE | 2017-03-30 15:24 | REP ---
Clinical: There is seen breath sounds. Comparison: 03/29/2017. Findings: Left apical pneumothorax and near complete opacification of the left hemithorax as well as right lung nodule remain unchanged. No obvious new acute process appreciated. Skeletal structures are intact. Impression: Left apical pneumothorax and near complete opacification of the left hemithorax remains unchanged. Right hemithorax without obvious acute process (pulmonary nodule again noted.). Signed by Jeff Bravo MD 03/30/2017 03:16 P
--- NOTE | 2017-03-30 16:30 | CR ---
DATE OF CONSULTATION: 03/30/2017 NOTE: Asked by Dr. Anguiano to evaluate Mr. Lee for pneumothorax and newly diagnosed lung cancer. Mr. Lee is a 61-year-old white male who had a transient ischemic attack (TIA) in January. As part of his evaluation at that time, he had a chest x-ray done, which showed a left upper lobe mass. He underwent conventional bronchoscopy and endobronchial ultrasound (EBUS) on 02/04/2017. The procedure showed a large mass 4 cm from the sejal on the left, almost completely obstructing the left mainstem, though the bronchoscope was able to be passed anteriorly, showing at that time a patent left lower lobe. The lingula and upper lobe were completely obscured by the tumor. Biopsies were taken from this tissue with those biopsies showing this to be moderately to poorly differentiated squamous cell carcinoma. A PET scan was done several days later, which showed confluent hypermetabolic foci in the left upper lobe mass as well as left hilar lymph nodes with collapse of the left upper lobe. He started chemotherapy (I do not know the agents) and XRT. He had his last chemotherapy last Wednesday and radiation therapy on Wednesday. Either Wednesday or Wednesday last week, he started noting a sore throat and had decreased oral intake. He felt progressively weaker and had some level of confusion and even hallucination. Perhaps a slight increase in his baseline cough (he did quit smoking approximately 2 weeks ago). No chest pain or pressure, but some soreness in the region of his radiation therapy. He reported nausea and emesis. No diarrhea. No known fevers until yesterday. His son stated that he was with him and he almost had to "carry him" into radiation/oncology yesterday. In the emergency department, he was found to have hyperglycemia with mild pseudohyponatremia, elevated BUN and creatinine from his baseline, elevated lactic acidosis but no acidemia. He had a chest x-ray done, which showed a tiny left-sided pneumothorax. He also had a chest CT scan done, which confirmed the presence of a left apical pneumothorax and consolidation of the left upper lobe along with increased central cavitation within the lesion as well as left lower lobe likely atelectasis. He was found to be tachycardic, and EKG showed atrial fibrillation with rapid ventricular response. The hospitalist service was then called for admission. I was initially contacted by the emergency department for recommendations regarding the pneumothorax. My recommendation was that nothing needed to be done with the pneumothorax, I recommended against thoracic surgery consultation, and I recommended that he be placed on a 100% nonrebreather overnight. Later, we were asked for a formal consultation. Currently, Mr. Lee feels much better. He denies any shortness of breath. He still has a cough that has not changed. No chest pain outside of the immediate area of the radiation therapy. No nausea. No further emesis. No diarrhea. No gastroesophageal reflux disease (GERD) symptoms. No lower extremity edema. No history of deep venous thrombosis (DVT). He feels better than he did upon presentation to the hospital and is anxious for discharge. He also is asking about possible hospice. ALLERGIES: No known drug allergies. MEDICATIONS ON ADMISSION: - albuterol metered-dose inhaler (MDI) two puffs every 4 hours as needed - aspirin 81 mg by mouth daily - atorvastatin 40 mg by mouth daily - chlorthalidone 12.5 mg by mouth daily - Plavix 75 mg by mouth daily - vitamin B12, 1000 mcg by mouth daily - Lexapro 10 mg by mouth daily - finasteride 5 mg by mouth every evening - fluticasone one inhalation twice a day - lisinopril 40 mg by mouth daily - lorazepam 0.5 mg by mouth twice a day as needed - metformin 1000 mg by mouth twice a day - metoprolol 50 mg by mouth twice a day - Zofran 8 mg by mouth twice a day - prochlorperazine 20 mg by mouth twice a day as needed - Toujeo 40 units subcutaneously twice a day - tramadol 50 mg by mouth every 4 hours as needed - venlafaxine 75 mg by mouth nightly - vitamin D 1000 units daily PAST MEDICAL HISTORY: 1. 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 a. PET scan showed no evidence of metastases. b. Has started on treatment with chemotherapy and XRT. 2. Diabetes mellitus type 2. 3. Hypertension. 4. History of TIA. 5. Dyslipidemia. 6. BPH. 7. Diverticulosis. 8. Chronic lower back pain. 9. Bilateral rotator cuff injury. 10. Chronic neck pain. a. Status post neck surgery. 11. Status post hernia repair. 12. Status post cholecystectomy. 13. Status post appendectomy. 14. History of tobacco usage, recent cessation. SOCIAL HISTORY: Mr. Lee quit smoking 1-2 weeks ago, after having smoked anywhere from 1-3 packs per day for over 40 years, giving him a 40-120 pack-year history. He does not drink alcohol. He lives at home. He has a dog as a pet. FAMILY HISTORY: Noncontributory to this admission. REVIEW OF SYSTEMS: Per history of present illness (HPI). Remainder of pertinent review of systems is negative. PHYSICAL EXAMINATION: GENERAL: Mr. Lee is lying in bed in no acute distress. He can complete full sentences. No cough during the evaluation. VITAL SIGNS: Temperature 98.9, pulse 164, respiratory rate 22, blood pressure 96/64 with a mean arterial pressure (MAP) of 75, SpO2 94% on 4 liters by nasal cannula. HEENT: Anicteric. Pupils equal, round, and reactive to light (PERRL). Nares patent bilaterally; oxygen tubing in place. Oropharynx clear; mild redness in the posterior pharynx. Dentures. NECK: Supple. Without jugular venous distention (JVD). Without thyromegaly or masses. Trachea is midline. LYMPHATICS: Without cervical or supraclavicular lymphadenopathy. CHEST: Normal shape. LUNGS: Asymmetric excursion with slightly decreased excursion on the left. Right lung is clear without wheeze, rhonchi, or crackle. Left lung shows diminished breath sounds posteriorly over the upper regions with bronchial breath sounds over the lower regions. Again, no wheeze or significant crackle. Normal I-to-E. No accessory muscle use or retractions. CARDIOVASCULAR: Tachycardia. Irregularly irregular. Normal S1, S2. No murmur, rub, or gallop appreciated. ABDOMEN: Positive bowel sounds. Soft, nontender, nondistended. No hepatosplenomegaly or masses appreciated. EXTREMITIES: Without clubbing, cyanosis, or edema. Palpable pedal pulses bilaterally. NEUROLOGIC: Awake, alert, and oriented times three. LABORATORY DATA: Electrolytes from last evening showed a sodium 135, potassium 3.9, chloride 99, bicarbonate 24, anion gap 12, BUN 25, creatinine 1.1, glucose 447, hemoglobin A1c 8.9, calcium 7.7, CK 133, troponin I less than 0.02, TSH 0.096. Initial lactate was 2.7 with a reflex value 1.7. Electrolytes today show a sodium 138, potassium 3.6, chloride 102, bicarbonate 24, anion gap 12, BUN 22, creatinine 0.75, glucose of 405. Calcium is 8.3, total bilirubin 0.4, AST 56, ALT 42, alkaline phosphatase 116, CK 122. Troponin I remains less than 0.02, total protein 5.3, albumin 1.6. CBC shows a hemoglobin of 9.6, hematocrit 28.1, platelet count 323,000, white blood cell count 13,200 with a differential of 94% neutrophils, 4% bands, 2% lymphocytes. Arterial blood gas was 7.47/37/63 with a measured saturation of 93% and a base excess of 2.7. The arterial blood gas was from 03/29/2017, and I do not know how much oxygen this was drawn on. I reviewed his chest x-ray, both from admission and today. Yesterday's x-ray showed a tiny left apical pneumothorax with opacification of the left upper lung region and with some infiltrates in the left lower lobe. Today's x-ray, when taking into consideration the technique, shows a slight increase, in my view, in the left lower lobe opacification. I reviewed his chest CT scan as well as the report from 03/29/2017. That CT scan showed left upper lobe opacification with tiny apical lymph nodes. There was a larger central cavity in the known area of squamous cell lesion. There was also left lower lobe atelectasis with possibly some mucous in the left lower lobe airway. No significant abnormalities on the right. IMPRESSION: 1. Tiny/small pneumothorax. This is likely related to the chemotherapy/XRT and is not enlarging and does not need any specific intervention at this time. 2. Left upper lobe consolidated region. Most likely, this is tumor with some postobstructive atelectasis and possibly some radiation-related changes. Infection would be in the differential, that seems less likely. 3. In regards to the left lower lobe abnormality, this appears to be more atelectasis. The differential would include infective processes. I also question if there may be some mucus in the airway. 4. Newly diagnosed squamous cell carcinoma involving the left upper lobe, status post chemotherapy and XRT, both of which recently started. 5. Mental status changes. He has had an MRI of his brain, which did not show any abnormalities. The other possible contribution from squamous cell carcinoma would be hypercalcemia, which he does not have either. I suspect some of his changes were secondary to hyperglycemia and possibly at times pseudohyponatremia. 6. Diabetes mellitus with difficulties recently with hyperglycemia. 7. Atrial fibrillation with rapid ventricular response. 8. History of tobacco usage, recent cessation. High risk for relapse. RECOMMENDATIONS: 1. As noted above, no intervention is necessary at this time for the pneumothorax. I do not even feel this needs to be followed with repeated chest x-rays. I feel it will be reasonable to obtain one in a couple of days or, obviously, if he clinically changes. 2. As noted above, I cannot exclude a postobstructive process and will defer any antibiotics to infectious disease. 3. It appears that his atrial fibrillation with rapid ventricular response may be a new diagnosis and when that is under control, he likely will feel better. 4. In regards to his questions regarding hospice, I did put in a hospice consultation and spoke to both the attending provider, Dr. Kenny, and Nat from [facility] ([facility]). He is interested in hospice most to find out what may be offered rather than truly wanting to enter it at this time. 5. Recommend aggressive pulmonary hyperinflation therapy to see if there would be any value in improving what is likely atelectasis in the left lower lobe. I have no other suggestions to offer at this time. I will speak to the team over the next couple of days to see when and if they have chosen to have any further x-rays and will review them. In regard to pneumothorax, I do not feel we need to follow that on a daily basis , but occasionally. However, I feel another chest x-ray tomorrow would be appropriate to see how his left lower lobe appears. Edited: marquez 03/30/2017 1530 MTDD
--- NOTE | 2017-03-30 17:14 | CR.PDOC ---
[facility] Consultation Consultation Infectious disease Consult Note Date of Consultation: 03/30/2017 Reason for Consultation: Suspicion for Postobstructive pneumonia Referring Provider: Dr. Xenia Anguiano PCP: Dr. Michael Martel Oncologist: Dr. Amos Radiation oncologist: Dr. Lindquist HISTORY OF PRESENT ILLNESS: Mr. Lee is a 61-year-old male who was apparently sent to the emergency department from the office of his radiation oncologist as he came in for radiation yesterday. He was accompanied in the room by his son and nephew who also provided some of the history. Apparently he had radiation and chemotherapy (Carboplatin & Taxol) performed last 03/23/2028, and he had been feeling nauseated thereafter associated with generalized weakness which she is supposed to be a reaction from the cancer therapy. He continued to get worse over the weekend, but he still came to his appointment on Wednesday. Apparently he was very confused and was having hallucinations where he was talking to people who were not there. It also appears that he was complaining of left-sided chest pain upon arrival to the ED, therefore a chest x-ray and CT was obtained which revealed essentially near complete consolidation of the left lower lobe, obstruction of the right upper lobe bronchus followed by cavitary lesion versus distended main bronchi, and a small left apical pneumothorax. He was started on vancomycin and meropenem empirically for postobstructive pneumonia. Per report from the family and the nurses apparently he was confused earlier this morning, however upon my evaluation this afternoon he appears to be completely awake, alert, and oriented. ALLERGIES: No known drug allergies PAST MEDICAL HISTORY: Hypertension Type 2 diabetes mellitus History of cerebrovascular accident 01/2017 leaving him with a weak in the right side Dyslipidemia BPH Diverticulosis Chronic low back pain Bilateral rotator cuff injuries Squamous cell cancer of the left lung PAST SURGICAL HISTORY: Hernia repair Cholecystectomy Tonsillectomy Neck surgery Appendectomy Lung mass biopsy SOCIAL HISTORY: The patient states that he quit smoking when he had his stroke in January, prior to that he smoked about 2 packs per day for 40+ years. He does not drink alcohol on a regular basis. Denies illicit drug use. FAMILY HISTORY: Mother had colon cancer, father had a skin cancer of some kind, sister had cholangiocarcinoma REVIEW OF SYSTEMS: It is difficult to obtain review of systems from patient, although he is awake and alert, apparently he was confused this morning. Apparently he was out of bed this morning when he was not supposed to and had a disagreement with the nurse, however he states that he does not recall this happening. He also apparently wanted to leave against medical advice earlier, but he decided not to. Although he does appear at least at this moment, he apparently was quite confused earlier this morning. He states that his nausea and vomiting has resolved, he does have some shortness of breath but he states it is no worse than his usual. He denies any fevers, chills, night sweats. He denies any palpitations, chest discomfort, or chest pain at this time. He denies any abdominal pain or discomfort, he has had loose stools for years, ever since he was diagnosed with diabetes, this is not new. Otherwise, he does not have any additional complaints. PHYSICAL EXAMINATION: General: Awake, alert, oriented to name, birthdate, location, year, and president, all of which he answers correctly without hesitation. HEENT: Head normocephalic atraumatic, conjunctiva are pink, sclera are nonicteric, buccal mucosa is pink and moist with no lesions in the oropharynx. Hearing is grossly intact to conversation. Respiratory: Diffuse sonorous rhonchi throughout with reduced breath sounds at the left lower base. Cardiovascular: Tachycardic rate, it is difficult to determine if he has murmurs or rubs and given his fast heart rate and sonorous lung sounds Abdomen: Soft, nontender, nondistended, no hepatosplenomegaly appreciated. Bowel sounds present. Extremities: 2+ pulses in the radial and dorsalis pedis bilaterally. No evidence of clubbing or cyanosis. MICROBIOLOGY: Respiratory panel PCR is negative. Sputum culture still pending. Urine culture still pending. Blood cultures after 24 hours are negative. ASSESSMENT/PLAN: 1. Postobstructive pneumonia. Given the severity and extension of his illness and I think that it would be appropriate to leave him on vancomycin and meropenem until sputum cultures return, then we can de-escalate at that time. 2. Metabolic encephalopathy and altered mental status. This could be multifactorial in nature, MRI of the brain report states that there are no new changes. He was confused this morning, although he appears to have improved significantly by this afternoon. From an infectious disease standpoint he is on appropriate empiric antibiotics. My preceptor for this patient encounter was physically present in the building during the encounter and was fully available. As needed, all aspects of the patient interview, examination, medical decision making process, and medical care plan development were reviewed and approved by the preceptor. Preceptor is aware and concurs with the plan as stated in the body of this note and will attest to such by his/her cosignature. Vital Signs/I&O Vital Signs Date Time Temp Pulse Resp B/P (MAP) Pulse Ox O2 Delivery O2 Flow Rate FiO2 03/30/17 15:00 151 24 124/74 (91) 93 Nasal Cannula 4.0 03/30/17 12:00 98.9 I&O- Last 24 Hours up to 6 AM 03/31/17 06:00 Intake Total 2830 ml Output Total 400 ml Balance 2430 ml Laboratory Data Labs 24H Laboratory Tests 2 03/29/17 16:56: Bedside Glucose (Misc Panel) 397H 03/29/17 18:01: Bedside Glucose (Misc Panel) 434H 03/29/17 18:55: Lactic Acid Followup at 4 Hours 1.7 03/29/17 19:07: Bedside Glucose (Misc Panel) 461H 03/29/17 20:12: Anion Gap 12, Glomerular Filtration Rate > 60.0, Estimated Mean Plasma Glucose 209H, Hemoglobin A1c 8.9, Blood Urea Nitrogen 25H, Creatinine 1.06, Sodium Level 135L, Potassium Level 3.9, Chloride Level 99, Carbon Dioxide Level 24, Calcium Level 7.7L, Total Creatine Kinase 133, Creatine Kinase MB 1.0, Creatine Kinase MB Relative Index 0.75, Troponin I < 0.02, Thyroid Stimulating Hormone ( TSH) 0.096L 03/29/17 20:16: Whole Blood Ionized Calcium 4.3L 03/29/17 21:59: Bedside Glucose (Misc Panel) 450H 03/30/17 00:16: Bedside Glucose (Misc Panel) 430H 03/30/17 01:28: Bedside Glucose (Misc Panel) 380H 03/30/17 02:14: Anion Gap 9, Glomerular Filtration Rate > 60.0, Blood Urea Nitrogen 24H, Creatinine 0.97, Sodium Level 135L, Potassium Level 3.5, Chloride Level 98, Carbon Dioxide Level 28, Calcium Level 8.7L, Total Creatine Kinase 140, Creatine Kinase MB 1.0, Creatine Kinase MB Relative Index 0.71, Troponin I < 0.02 03/30/17 03:07: Bedside Glucose (Misc Panel) 403H 03/30/17 04:53: Anion Gap 7L, Glomerular Filtration Rate > 60.0, Blood Urea Nitrogen 23H, Creatinine 0.81, Sodium Level 138, Potassium Level 3.5, Chloride Level 101, Carbon Dioxide Level 30, Calcium Level 8.7L, Nucleated Red Blood Cells % (auto) 0.0, Aspartate Amino Transf (AST/SGOT) 30, Alanine Aminotransferase (ALT/SGPT) 28, Alkaline Phosphatase 68, Total Bilirubin 0.3, Total Protein 6.2L, Albumin 1.5L, Magnesium Level 2.0, C-Reactive Protein, Quantitative 38.60H, Albumin/ Globulin Ratio 0.32L, Thyroid Stimulating Hormone (TSH) 0.082L, Free Thyroxine Index 3.2, Thyroxine (T4) 7.1, Triiodothyronine (T3) Uptake 45H 03/30/17 05:07: Bedside Glucose (Misc Panel) 345H 03/30/17 07:24: Bedside Glucose (Misc Panel) 307H 03/30/17 11:37: White Blood Count 13.2H, Red Blood Count 3.35L, Hemoglobin 9.6L, Hematocrit 28.1L, Mean Corpuscular Volume 83.9, Mean Corpuscular Hemoglobin 28.7, Mean Corpuscular Hemoglobin Concent 34.2, Red Cell Distribution Width 16.0H, Platelet Count 323, Lymphocytes # (Auto) , Nucleated Red Blood Cells % (auto) 0.0, Neutrophils 94H, Band Neutrophils 4, Lymphocytes (Manual) 2L, Platelet Estimate NORMAL, Hypochromasia 1+, Anisocytosis 1+, Anion Gap 12, Glomerular Filtration Rate > 60.0, Blood Urea Nitrogen 22H, Creatinine 0.75, Sodium Level 138, Potassium Level 3.6, Chloride Level 102, Carbon Dioxide Level 24, Calcium Level 8.3L, Aspartate Amino Transf (AST/SGOT) 56H, Alanine Aminotransferase (ALT /SGPT) 42, Alkaline Phosphatase 116, Total Bilirubin 0.4, Total Protein 5.3L, Albumin 1.6L, Total Creatine Kinase 122, Creatine Kinase MB 1.0, Creatine Kinase MB Relative Index 0.81, Troponin I < 0.02, Albumin/Globulin Ratio 0.43L 03/30/17 11:48: Bedside Glucose (Misc Panel) 410H CBC/BMP Laboratory Tests 03/29/17 20:12 Calcium Level 7.7 L, Total Creatine Kinase 133 03/30/17 02:14 Calcium Level 8.7 L, Total Creatine Kinase 140 03/30/17 04:53 Calcium Level 8.7 L, Red Blood Count 3.12 L, Mean Corpuscular Volume 84.3, Mean Corpuscular Hemoglobin 28.5, Mean Corpuscular Hemoglobin Concent 33.8, Red Cell Distribution Width 15.9 H, Aspartate Amino Transf (AST/SGOT) 30, Alanine Aminotransferase (ALT/SGPT) 28, Alkaline Phosphatase 68, Total Bilirubin 0.3, Total Protein 6.2 L, Albumin 1.5 L 03/30/17 11:37 Calcium Level 8.3 L, Red Blood Count 3.35 L, Mean Corpuscular Volume 83.9, Mean Corpuscular Hemoglobin 28.7, Mean Corpuscular Hemoglobin Concent 34.2, Red Cell Distribution Width 16.0 H, Aspartate Amino Transf (AST/SGOT) 56 H, Alanine Aminotransferase (ALT/SGPT) 42, Alkaline Phosphatase 116, Total Bilirubin 0.4, Total Protein 5.3 L, Albumin 1.6 L, Lymphocytes # (Auto) Microbiology Microbiology 03/29/17 Blood Culture, Received Pending 03/29/17 Blood Culture - Preliminary, Resulted No growth after 24 hours . All specim... 03/30/17 Gram Stain - Final, Resulted 03/30/17 Sputum Culture, Resulted Pending 03/30/17 Respiratory Virus Panel (PCR) ([facility]) - Final, Complete 03/29/17 Urine Culture, Received Pending Allergies Coded Allergies: No Known Drug Allergy (Verified Allergy, Unknown, 08/03/12) Home Medications Scheduled (Ruma Lewis) 300 Unit/Ml Inj, 40 UNIT SC BID, (Reported) (Fluticasone Propionate/SA 113-14 Mcg/Act) 1 Inh Inh, 1 INH INH BID, (Reported) Aspirin (Aspirin 81) 81 Mg Tab, 81 MG PO DAILY, (Reported) Atorvastatin Calcium (Atorvastatin Calcium) 40 Mg Tab, 40 MG PO DAILY, (Reported ) Chlorthalidone (Chlorthalidone) 25 Mg Tab, 12.5 MG PO DAILY, (Reported) Clopidogrel Bisulfate (Plavix) 75 Mg Tab, 75 MG PO DAILY, (Reported) Cyanocobalamin (Vitamin B12) 1,000 Mcg Tab, 1,000 MCG PO DAILY, (Reported) Escitalopram Oxalate (Lexapro) 10 Mg Tab, 10 MG PO DAILY, (Reported) Finasteride (Finasteride) 5 Mg Tab, 5 MG PO QPM, (Reported) Lisinopril (Lisinopril) 40 Mg Tab, 40 MG PO DAILY, (Reported) Metformin Hydrochloride (Metformin HCl) 1,000 Mg Tab, 1,000 MG PO BID, (Reported ) Metoprolol Tartrate (Metoprolol Tartrate) 50 Mg Tab, 50 MG PO BID, (Reported) Venlafaxine HCl (Venlafaxine HCl ER) 37.5 Mg Cap, 75 MG PO QHS, (Reported) Vitamin D (Vitamin D) 1,000 Unit Cap, 1,000 UNIT PO DAILY, (Reported) Scheduled PRN Albuterol Sulfate (Ventolin Hfa) 200 Puff/8 Gm Aers, 2 PUFF INH Q4H PRN for SHORTNESS OF BREATH, (Reported) Lorazepam (Lorazepam) 0.5 Mg Tab, 0.5 MG PO BID PRN for ANXIETY, (Reported) Ondansetron HCl (Zofran) 8 Mg Tab, 8 MG PO BID PRN for NAUSEA OR VOMITING, ( Reported) Prochlorperazine Maleate (Prochlorperazine Maleate) 10 Mg Tab, 20 MG PO BID PRN for NAUSEA OR VOMITING, (Reported) Tramadol HCl (Tramadol HCl) 50 Mg Tab, 50 MG PO Q4H PRN for PAIN, (Reported) DEA NI DO Mar 30, 2017 16:16
[2017-03-30] MEDS ORDERED: DIGOXIN INJ 0.5 MG/2 ML AMP (J1160) IV ONE (17:15)
--- NOTE | 2017-03-30 20:59 | CR ---
DATE OF CONSULTATION: 03/30/2017 REFERRING PHYSICIAN: Dr. Kenny INDICATION: Atrial fibrillation with rapid ventricular response (RVR). HISTORY OF PRESENT ILLNESS: Mr. Lee is previously unknown to me. He is a very pleasant 61-year-old man who has a multitude of medical problems. He presented to our facility with altered mental status in the process of getting combination of chemo and radiation therapy for squamous cell lung cancer. He was found to have consolidation of virtually all left lung with small apical pneumothorax. He was also found to be in atrial fibrillation with rapid ventricular response. His heart rate was occasionally as high as 200 beats per minute. He did not have much of awareness of palpitations. He was treated initially with administration of digoxin because his blood pressure was soft. He by now received a total of 0.75 mg. It led to slowing on his heart rate and currently the heart rate, when at bedside, is approximately 100-130 beats per minute. He denies any sensation of chest pain and dyspnea is not far from his baseline. He denies any prior history of atrial fibrillation, but he was hospitalized in this facility in January 2017 for a small ischemic stroke with right-sided hemiparesis. At that point, there were no episodes of atrial fibrillation detected, and he was treated with administration of aspirin and Plavix. An echocardiogram at that point revealed preserved left ventricular systolic function, aortic sclerosis, grade 1 diastolic dysfunction and no further significant valvular disease. PAST MEDICAL HISTORY: 1. 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 2. Type 2 diabetes. 3. Hypertension. 4. Dyslipidemia. 5. Ischemic stroke January 2017. 6. BPH. 7. Diverticulosis. 8. Chronic low back pain. SURGICAL HISTORY: Positive for cholecystectomy, tonsillectomy, neck surgery, appendectomy, lung mass biopsy and hernia repair. SOCIAL HISTORY: The patient is . He was a heavy smoker, approximately two packs a day for 40 years but quit since his diagnosis of lung cancer in January. No significant alcohol use. FAMILY HISTORY: Mother had colon cancer. Father had also some form of skin cancer. REVIEW OF SYSTEMS: He denies any recent fever, chills, nausea or vomiting. There is no history of bleeding problems. No chest pain. He has had palpitations he believes for a few days on and off. Exertional dyspnea has been chronic and stable. He has mild right-sided hemiparesis still. Denies nausea, vomiting other than prior to this presentation, likely related to chemotherapy. No fever and chills per se. The rest of the review of systems is negative. PHYSICAL EXAMINATION: Mr. Lee is a middle-aged man who appears approximately his age. He does not appear to be in any distress. Last documented set of vital signs revealed blood pressure 124/74, heart rate around 120, atrial fibrillation. Saturation is 98% on 4 liters of oxygen by nasal cannula. He is alert and oriented and appropriate. His jugular venous pressure (JVP) is not elevated. I do not appreciate carotid bruit. Heart: Exam reveals irregular rhythm with fast heart rate; I do not appreciate any distinct gallop, rub or murmur. Lungs are relatively clear to auscultation on the right. On the left, there are some occasional scattered rhonchi but surprisingly the air movement is still easily audible. There is dullness to percussion throughout the left lung field. Abdomen is soft without obvious tenderness or rebound tenderness. Extremities: Have no edema. Peripheral pulses are palpable. I did not formally test his strength, but he moves all four extremities and he is certainly alert and oriented and his speech is intact. MEDICATIONS: On an outpatient basis, the patient was receiving insulin, he has been undergoing chemotherapy with Taxol and carboplatin, albuterol, aspirin 81 mg a day, Lipitor 40 mg a day, chlorthalidone 12.5 mg a day, Plavix 75 mg a day, vitamin B12, Lexapro 10 mg a day, finasteride 5 mg a day, fluticasone, lisinopril 40 mg a day, lorazepam 0.5 mg a day, metformin 1 gram twice a day, metoprolol 50 mg twice a day, Zofran, and prochlorperazine as needed, Toujeo, tramadol, venlafaxine and vitamin D. Currently his medications include albuterol, aspirin, Lipitor, Plavix, vitamin B12, Lexapro, insulin and a combination of vancomycin and meropenem. He received a total of 0.75 mg of digoxin IV. LABORATORY DATA: Basic metabolic panel is essentially normal but for glucose 405. Normal liver function tests. Albumin is 1.6. CBC: Hemoglobin 9.6, hematocrit 28, platelet count 323,000, WBC count 13.2. ECG from today reveals atrial fibrillation with ventricular rate 168 beats per minute and nonspecific repolarization abnormalities. ECG from yesterday revealed sinus tachycardia with ventricular rate 114 beats per minute. IMAGING STUDIES: As per history of the present illness. . ASSESSMENT AND PLAN: Mr. Lee is a 62-year-old man who has inoperable advanced lung cancer and currently is undergoing combination of chemo radiation therapy. He presents sick with consolidation of his left lung and associated atrial fibrillation with rapid ventricular response. I suspect that he already had atrial fibrillation in January that just was not recorded or detected and was the cause of his original stroke. The first goal will be to accomplish rate control. Because he was quite hypotensive, digoxin was used and the load has not be quite completed. Going to give him additional 0.25 mg just by mouth probably late at night. Then, will determine further dosing depending on the response and the level in the morning. We probably will be able to add at least small dose beta landon because his blood pressure is better with hydration. The more difficult question is that of use of anticoagulation. He is currently on aspirin and Plavix, which is certainly not sufficient to prevent recurrence of stroke. Simultaneously, though, he is at high risk of bleeding due to underlying malignancy. At this point, I would probably discontinue the aspirin and Plavix and wait with starting anticoagulation until tomorrow. For the time being, I think it is appropriate to keep him on subcu heparin as he has been. Because I consider his bleeding risk relatively high, I think it would be prudent to use a medication that can be easily reversed - like for example Pradaxa. This is provided there is no oncologic contraindication. MTDD
[2017-03-30] MEDS: FINASTERIDE 5 MG TAB PO SCH (21:13)
[2017-03-30] MEDS: METOPROLOL TART 25 MG TABLET PO SCH (21:18)
[2017-03-30] MEDS ORDERED: DIGOXIN 0.25 MG TAB PO ONE (23:45)
[2017-03-31] VITALS (8 sets, daily range): BP systolic 102–145; BP diastolic 59–93; O2SAT 96
[2017-03-31] MEDS: VANCOMYCIN HCL 1,000 MG, VIAL MATE ADAPTER 1 EACH in D5W 250 ML IV SCH ×3 (00:59→16:54)
[2017-03-31] MEDS: IPRATROPIUM 0.5MG/ALBUTEROL 2.5MG INH SOL UD 3ML (DUONEB)(J7620) NEB SCH ×4 (01:40→19:42)
[2017-03-31] MEDS: KCL 20MEQ in NS 1000ML 1,000 ML IV SCH ×3 (03:50→22:32)
[2017-03-31 05:19] LABS: MEAN CORPUSCULAR HEMOGLOBIN 28.7 pg (27.0-33.0); MEAN CORPUSCULAR HGB CONC 33.7 g/dl (32.0-36.5); PLATELET COUNT, AUTOMATED 283 10^3/uL (150-450); RED CELL DISTRIBUTION WIDTH 16.3 % (11.5-14.5); WHITE BLOOD COUNT 11.1 10^3/uL (4.0-10.0)
[2017-03-31 05:49] LABS: ALBUMIN 1.5 GM/DL (3.2-5.2); ALBUMIN/GLOBULIN RATIO 0.33 (1.00-1.93); ALKALINE PHOSPHATASE 90 U/L (45-117); ALT/SGPT 47 U/L (12-78); ANION GAP 6 MEQ/L (8-16); AST/SGOT 57 U/L (7-37); BILIRUBIN,TOTAL 0.2 MG/DL (0.2-1.0); BLOOD UREA NITROGEN 22 MG/DL (7-18); CALCIUM LEVEL 8.5 MG/DL (8.8-10.2); CARBON DIOXIDE LEVEL 30 MEQ/L (21-32); CHLORIDE LEVEL 109 MEQ/L (98-107); CREATININE FOR GFR 0.61 MG/DL (0.70-1.30); DIGOXIN LEVEL 0.9 NG/ML (0.5-2.0); GLOMERULAR FILTRATION RATE > 60.0 (>49); GLUCOSE, FASTING 88 MG/DL (80-110); POTASSIUM SERUM 3.6 MEQ/L (3.5-5.1); SODIUM LEVEL 145 MEQ/L (136-145)
[2017-03-31] MEDS: methylPREDNISolone INJ 40 MG/1 ML VIAL (J2920) IV SCH ×3 (06:25→22:33)
[2017-03-31] MEDS: MEROPENEM INJ 1 GM in APPROPRIATE DILUENT 1 EA IV SCH ×3 (06:25→22:33)
[2017-03-31] MEDS: HEPARIN SOD (PORCINE) 5000 UNITS/ML VIAL SC SCH ×3 (06:25→20:58)
--- NOTE | 2017-03-31 07:04 | IPNPDOC ---
Text Note Date of Service The patient was seen on 03/31/17. NOTE Subjective: Patient seen and examined at bedside. States he is feeling better today. Denies any worsening shortness of breath, chest pain, abdominal pain. Objective: General: NAD, lying comfortably in bed, in good spirits, son at bedside HEENT: NC/AT, EOMI, PERRL Lungs: L coarse breath sounds, R CTA Heart: +S1S2, irregularly irregular Abd: soft, NT, +BS Ext: no edema Psych: AAOx3 ASSESSMENT AND PLAN: This is a 61-year-old male patient with underlying medical history of squamous cell lung cancer, hypertension, diabetes, type2, dyslipidemia, BPH, diverticulosis, chronic back pain, bilateral rotator cuff injury, chronic neck pain, pulmonary nodules, squamous cell lung cancer, transient ischemic attack, admitted with encephalopathy and small apical pneumothorax with possible postobstructive pneumonia. #Sepsis - possibly secondary to pneumonia - possibly postobstructive - immunocompromised due to cancer and chemoradiation therapy, - continue IVF, broad spectrum Abx - vanc/tanesha; cultures unrevealing thus far - ID c/s appreciated #Afib w/ RVR - has been loaded with digoxin - now on PO dig + BB - blood pressures are much better, rate is better, still elevated - patient had recent echo done - ASA/plavix discontinued - likely transition to Pradaxa - high risk of bleeding - risks/benefits discussed at length with patient - cardiology consultation appreciated #Encephalopathy - likely metabolic encephalopathy - resolved #DM - uncontrolled - ISS, modified diet #BPH - finasteride #Hyponatremia secondary to hyperglycemia - resolved #Apical small pneumothorax - Case has been discussed with Dr. Braun and Dr. Terrazas. No intervention at this time. Will monitor carefully. If patient's symptoms change, will get stat x-ray and ask Dr. Terrazas for chest tube. In the meantime, will place the patient on 100% nonrebreather. #Postobstructive pneumonia. Case discussed with Dr. Anthony, Dr. Braun and Dr. Terrazas. No intervention at this time. Continue radiation therapy as tolerated. The patient is not a candidate for stenting, as per Dr. Anthony. Continue antibiotics as above. #Possible asthma bronchospasm. The patient has some wheeze. Solu-Medrol, nebulizer treatment. Continue antibiotics as above. #History TIA - MRI brain no acute findings - Patient continued on aspirin, statin,Plavix. #Dyslipidemia. Continue statin. #Hypertension - Patient has been hypotensive as per above - resumed low dose BB - ACEI still on hold - could likely restart #Squamous cell lung cancer - Case discussed with Dr. Amos and Dr. Lindquist. -Continue further radiation as per Dr. Lindquist. Dr. Braun has been consulted. #nicotine abuse - recently quit smoking - not interested in NRT #anxiety/depression - lexapro and venlafaxine as per home regimen - lorazepam prn on hold from home regimen #DEEP VEIN THROMBOSIS (DVT) PROPHYLAXIS. Heparin subcu. DISPOSITION: Patient is DO NOT RESUSCITATE/DO NOT INTUBATE (DNR/DNI). Poor long-term prognosis. Patient is interested in continuing with chemo/RT but would like to discuss other options with hospice. VS,Fishbone, I+O VS, Fishbone, I+O Laboratory Tests 03/30/17 11:37 Red Blood Count 3.35 L, Mean Corpuscular Volume 83.9, Mean Corpuscular Hemoglobin 28.7, Mean Corpuscular Hemoglobin Concent 34.2, Red Cell Distribution Width 16.0 H, Lymphocytes # (Auto) , Calcium Level 8.3 L, Aspartate Amino Transf (AST/SGOT) 56 H, Alanine Aminotransferase (ALT/SGPT) 42, Alkaline Phosphatase 116, Total Bilirubin 0.4, Total Protein 5.3 L, Albumin 1.6 L 03/31/17 04:55 Red Blood Count 2.93 L, Mean Corpuscular Volume 85.0, Mean Corpuscular Hemoglobin 28.7, Mean Corpuscular Hemoglobin Concent 33.7, Red Cell Distribution Width 16.3 H, Calcium Level 8.5 L, Aspartate Amino Transf (AST/SGOT ) 57 H, Alanine Aminotransferase (ALT/SGPT) 47, Alkaline Phosphatase 90, Total Bilirubin 0.2, Total Protein 6.0 L, Albumin 1.5 L Vital Signs Date Time Temp Pulse Resp B/P (MAP) Pulse Ox O2 Delivery O2 Flow Rate FiO2 03/31/17 04:00 97.8 110 24 116/83 (94) 95 Nasal Cannula 4.0 KEVIN CAMPBELL MD Mar 31, 2017 07:04
[2017-03-31] MEDS: HumaLOG INSULIN (NovoLOG) PER UNIT SC SCH ×4 (07:30→20:57)
--- NOTE | 2017-03-31 07:57 | IPN ---
DATE: 03/31/2017 Mr. Lee had a relatively uneventful night. He was able to sleep intermittently. He reports that he did feel some palpitations last night, but no chest pain. His dyspnea is at baseline and is not bad at rest. Vital Signs: This morning, blood pressure 116/83. Heart rate has been mostly between 100 and 120. He is afebrile. Saturation is 95% on 4 liters of oxygen. His fluid balance yesterday was positive about 3.2 liters. Weight is documented at 92.7 kg this morning. He is alert, oriented and appropriate. His jugular venous pulse (JVP) is not elevated. Lungs are relatively clear on the right, on the left he has some rhonchi, but surprisingly it seems that he has relatively preserved air movement. There is some consolidation or dullness to percussion though. Heart exam reveals irregularly irregular rhythm. I do not appreciate any gallop or rub. Abdomen soft, nontender. There is no peripheral edema. Neurologically, he is intact, even though I did not do any formal testing of his strengths. Laboratory-gipson, basic metabolic panel is normal. Liver function tests also normal. Albumin is 1.5. CBC: Hemoglobin 8.4, hematocrit 25, platelet count 283,000, WBC count 11.1. Digoxin level is 0.9 ASSESSMENT/PLAN: Mr. Lee is a 61-year-old man who unfortunately has a large left-sided squamous cell carcinoma. He has been undergoing chemoradiation therapy, but presented with dense consolidation of the left lung likely related at least in part to obstruction. As a complicating factor, he developed atrial fibrillation with rapid ventricular response and he was somewhat hypotensive to start with. After loading with digoxin and IV hydration, his blood pressure now is better and heart rate is better controlled. I put him back on low-dose beta landon and I would continue digoxin. Hopefully, this will be sufficient to accomplish good rate control. Somewhat more difficult question is the choice of anticoagulation. My personal choice would be Pradaxa because it is reversible in case he develops bleeding complications. Alternatively, we can use also Coumadin, but I would be reluctant to pursue Xarelto or Eliquis, mostly because this lacks of reversal agent. I will leave the decision to the primary team. It should be coordinated with pulmonary and oncology services.
[2017-03-31] MEDS: LEVEMIR (INSULIN DETEMIR) 1 UNITS/0.01ML SC SCH ×2 (08:00→20:56)
[2017-03-31] MEDS: SENOKOT S TAB PO SCH ×2 (08:30→20:56)
[2017-03-31] MEDS: ATORVASTATIN 20 MG TAB PO SCH (08:31)
[2017-03-31] MEDS: CYANOCOBALAMIN 500 MCG TAB PO SCH (08:31)
[2017-03-31] MEDS: ASPIRIN 81 MG ENTERIC TAB PO SCH (08:32)
[2017-03-31] MEDS: ESCITALOPRAM OXALATE 10 MG TAB (LEXAPRO) PO SCH (08:32)
[2017-03-31] MEDS: VITAMIN D 1,000 INTERNATIONAL UNITS TABLET PO SCH (08:32)
[2017-03-31] MEDS: METOPROLOL TART 25 MG TABLET PO SCH ×2 (08:32→20:57)
--- NOTE | 2017-03-31 08:36 | REP ---
Clinical: Follow up opacities and pneumothorax. Technique: PA and lateral. Comparison: 03/30/2017. Findings: Small residual left apical pneumothorax is again identified. Improved aeration to the left hemithorax is appreciated although diffuse opacities are again noted as well as a cavitary component with air-fluid level in the mid lung zone measuring approximately 3.5 cm diameter. The right hemithorax appears clear. Mediastinum and cardiac silhouette are incompletely evaluated due to overlying opacities. Skeletal structures are stable. Impression: 1. Small left apical pneumothorax and 3.5 cm possible cavitary lesion with air-fluid level in the mid lung zone. 2. Minimally improved aeration to the left lung with continued diffuse opacities. Signed by Jeff Bravo MD 03/31/2017 08:27 A
[2017-03-31] MEDS ORDERED: DIGOXIN 0.125 MG TAB PO SCH (09:00)
[2017-03-31] MEDS ORDERED: VANCOMYCIN HCL 1,000 MG, VIAL MATE ADAPTER 1 EACH in D5W 250 ML IV ONE (11:00)
[2017-03-31] MEDS: FINASTERIDE 5 MG TAB PO SCH (20:56)
[2017-03-31] MEDS: VENLAFAXINE **XR** 75MG CAPSULE PO SCH (20:56)
[2017-04-01] VITALS (8 sets, daily range): BP systolic 131–152; BP diastolic 73–95; O2SAT 97–100
[2017-04-01] MEDS: VANCOMYCIN HCL 1,000 MG, VIAL MATE ADAPTER 1 EACH in D5W 250 ML IV SCH ×2 (00:22→09:02)
[2017-04-01] MEDS: IPRATROPIUM 0.5MG/ALBUTEROL 2.5MG INH SOL UD 3ML (DUONEB)(J7620) NEB SCH ×4 (01:16→20:01)
[2017-04-01 05:11] LABS: MEAN CORPUSCULAR HEMOGLOBIN 28.3 pg (27.0-33.0); MEAN CORPUSCULAR HGB CONC 32.5 g/dl (32.0-36.5); MEAN CORPUSCULAR VOLUME 87.1 fl (80.0-96.0); PLATELET COUNT, AUTOMATED 275 10^3/uL (150-450); RED CELL DISTRIBUTION WIDTH 16.8 % (11.5-14.5); WHITE BLOOD COUNT 10.2 10^3/uL (4.0-10.0)
[2017-04-01 05:38] LABS: ALBUMIN 1.5 GM/DL (3.2-5.2); ALBUMIN/GLOBULIN RATIO 0.36 (1.00-1.93); ALKALINE PHOSPHATASE 113 U/L (45-117); ALT/SGPT 92 U/L (12-78); ANION GAP 6 MEQ/L (8-16); AST/SGOT 110 U/L (7-37); BILIRUBIN,TOTAL 0.3 MG/DL (0.2-1.0); BLOOD UREA NITROGEN 24 MG/DL (7-18); CALCIUM LEVEL 8.3 MG/DL (8.8-10.2); CARBON DIOXIDE LEVEL 31 MEQ/L (21-32); CHLORIDE LEVEL 108 MEQ/L (98-107); CREATININE FOR GFR 0.55 MG/DL (0.70-1.30); GLOMERULAR FILTRATION RATE > 60.0 (>49); GLUCOSE, FASTING 68 MG/DL (80-110); MAGNESIUM LEVEL 1.9 MG/DL (1.8-2.4); POTASSIUM SERUM 4.1 MEQ/L (3.5-5.1); SODIUM LEVEL 145 MEQ/L (136-145); TOTAL PROTEIN 5.7 GM/DL (6.4-8.2)
[2017-04-01] MEDS: KCL 20MEQ in NS 1000ML 1,000 ML IV SCH ×3 (06:06→20:45)
[2017-04-01] MEDS: MEROPENEM INJ 1 GM in APPROPRIATE DILUENT 1 EA IV SCH ×3 (06:07→23:21)
[2017-04-01] MEDS: methylPREDNISolone INJ 40 MG/1 ML VIAL (J2920) IV SCH (06:07)
[2017-04-01] MEDS: HEPARIN SOD (PORCINE) 5000 UNITS/ML VIAL SC SCH (06:08)
--- NOTE | 2017-04-01 06:57 | IPNPDOC ---
Text Note Date of Service The patient was seen on 04/01/17. NOTE Subjective: Patient seen and examined at bedside. States he is feeling better today and is wondering when he can go home. Denies any worsening shortness of breath, chest pain, abdominal pain. Objective: General: NAD, lying comfortably in bed HEENT: NC/AT, EOMI, PERRL Lungs: L coarse breath sounds, R CTA Heart: +S1S2, irregularly irregular Abd: soft, NT, +BS Ext: no edema Psych: AAOx3 ASSESSMENT AND PLAN: This is a 61-year-old male patient with underlying medical history of squamous cell lung cancer, hypertension, diabetes, type2, dyslipidemia, BPH, diverticulosis, chronic back pain, bilateral rotator cuff injury, chronic neck pain, pulmonary nodules, squamous cell lung cancer, transient ischemic attack, admitted with encephalopathy and small apical pneumothorax with possible postobstructive pneumonia. #Sepsis - possibly secondary to pneumonia - possibly postobstructive - immunocompromised due to cancer and chemoradiation therapy, - continue IVF, broad spectrum Abx - vanc/tanesha; cultures unrevealing thus far - follow as per ID c/s appreciated #Anemia - checking stool occult blood - further complicating factor for role of anticoagulation #Afib w/ RVR - continue dig + BB - blood pressures are much better, rate is better but still elevated - patient had recent echo done - ASA/plavix discontinued - considering transition to Pradaxa - high risk of bleeding/anemic - risks/benefits discussed at length with patient - cardiology consultation appreciated #Encephalopathy - likely metabolic encephalopathy - resolved #DM - uncontrolled - ISS, modified diet #BPH - finasteride #Hyponatremia secondary to hyperglycemia - resolved #Apical small pneumothorax - Case has been discussed with Dr. Braun and Dr. Terrazas. No intervention at this time. #Postobstructive pneumonia. - Case has been discussed with Dr. Anthony, Dr. Braun and Dr. Terrazas - No intervention at this time. Continue radiation therapy as tolerated. - The patient is not a candidate for stenting, as per . Continue antibiotics as above. #History TIA - MRI brain no acute findings - Patient previously on aspirin/plavix - continue statin #Dyslipidemia. Continue statin. #Hypertension - Patient has been hypotensive as per above - resumed low dose BB - ACEI still on hold - could likely restart #Squamous cell lung cancer - Case discussed with Dr. Amos and Dr. Lindquist. -Continue further radiation as per Dr. Lindquist. Dr. Braun has been consulted. #nicotine abuse - recently quit smoking - not interested in NRT #anxiety/depression - lexapro and venlafaxine as per home regimen - lorazepam prn on hold from home regimen #DEEP VEIN THROMBOSIS (DVT) PROPHYLAXIS. Heparin subcu. DISPOSITION: Patient is DO NOT RESUSCITATE/DO NOT INTUBATE (DNR/DNI). Poor long-term prognosis. Patient is interested in continuing with chemo/RT but would like to discuss other options with hospice. VS,Fishbone, I+O VS, Fishbone, I+O Laboratory Tests 04/01/17 04:54 Red Blood Count 2.86 L, Mean Corpuscular Volume 87.1, Mean Corpuscular Hemoglobin 28.3, Mean Corpuscular Hemoglobin Concent 32.5, Red Cell Distribution Width 16.8 H, Calcium Level 8.3 L, Aspartate Amino Transf (AST/SGOT ) 110 H, Alanine Aminotransferase (ALT/SGPT) 92 H, Alkaline Phosphatase 113, Total Bilirubin 0.3, Total Protein 5.7 L, Albumin 1.5 L Vital Signs Date Time Temp Pulse Resp B/P (MAP) Pulse Ox O2 Delivery O2 Flow Rate FiO2 04/01/17 04:00 97.9 137 26 138/87 (104) 97 Nasal Cannula 4.0 I&O- Last 24 Hours up to 6 AM 04/02/17 06:00 Intake Total 1000 ml Balance 1000 ml KEVIN CAMPBELL MD Apr 01, 2017 06:57
[2017-04-01] MEDS: HumaLOG INSULIN (NovoLOG) PER UNIT SC SCH ×4 (07:30→20:52)
[2017-04-01] MEDS: LEVEMIR (INSULIN DETEMIR) 1 UNITS/0.01ML SC SCH ×2 (08:00→20:00)
[2017-04-01] MEDS: CYANOCOBALAMIN 500 MCG TAB PO SCH (08:58)
[2017-04-01] MEDS: DABIGATRAN ETEXILATE 75 MG CAP (PRADAXA) PO SCH ×2 (09:00→20:44)
[2017-04-01] MEDS: ATORVASTATIN 20 MG TAB PO SCH (09:00)
[2017-04-01] MEDS: METOPROLOL TART 50 MG TAB PO SCH ×2 (09:01→20:44)
[2017-04-01] MEDS: ESCITALOPRAM OXALATE 10 MG TAB (LEXAPRO) PO SCH (09:01)
[2017-04-01] MEDS: SENOKOT S TAB PO SCH ×2 (09:02→20:43)
[2017-04-01] MEDS: VITAMIN D 1,000 INTERNATIONAL UNITS TABLET PO SCH (09:02)
--- NOTE | 2017-04-01 09:21 | IPN ---
DATE: 04/01/2017 Mr. Lee had a pretty good night he tells me that he was able to sleep reasonably well. His dyspnea is no different than yesterday. He was able to ambulate without major difficulty. Unfortunately his heart rate is not well-controlled. He remains in atrial fibrillation and his heart rate is in 120s and 130s, which is actually worse than yesterday. Otherwise, his vital signs reveal a blood pressure of 138/87, heart rate as above. He saturates in high 90s on 4 liters of oxygen by nasal cannula, and he has been afebrile. His weight has been documented as 92.6 kg, which has not changed since yesterday. He is alert and oriented and appropriate. His jugular venous pulse is not up. Lungs are relatively clear on the right. On the left he still has some crackles and rhonchi, but air movement seems to be reasonably good. Heart exam irregularly irregular tachycardia. I do not appreciate any gallop. Abdomen is soft and nontender and there is no peripheral edema. He moves all four extremities and his speech is intact. Laboratory gipson, basic metabolic panel is essentially normal as are liver function tests, but for AST that is 110, albumin is 1.5. CBC reveals hemoglobin 8.1, hematocrit 24.9 and platelet count 275,000. ASSESSMENT/PLAN: Mr. Lee is a 61-year-old man who has advanced lung cancer and has been undergoing chemo and radiation therapy. He presented with post obstructive pneumonia and also atrial fibrillation with rapid ventricular response (RVR). After loading him with digoxin and adding metoprolol, his heart rate is a little improved, but it is far from optimal. I am going to advance the dose of metoprolol to 50 mg twice a day and continue digoxin. Fortunately, he is relatively asymptomatic from this point. The more difficult question is that of chronic anticoagulation. He already had a stroke about 2 months ago and consequently the risk of recurrence is very high. So far he has been only on DAPT, which is not appropriate in this setting. Even though he is anemic, I am going to switch him to Pradaxa. I chose Pradaxa because it has a reversal agent and in case of bleeding it can be rapidly terminated. I will give him only 75 mg twice a day for couple three days as a testing dose and provided no bleeding complications occur we can advance the dose to a full 150 mg twice a day. Simultaneously, I am going to discontinue aspirin and subcu heparin as Pradaxa provides the same effect.
[2017-04-01 10:38] LABS: PHOSPHORUS LEVEL 3.2 MG/DL (2.5-4.9)
--- NOTE | 2017-04-01 19:36 | IPN ---
DATE: 04/01/2017 Mr. eLe seems to be feeling better today but he wants to go home with hospice. His daughter is at bedside and his and they both agree that the patient wants to go home on hospice and they anticipate hopefully to have everything ready for him by Wednesday. He does not want any more chemotherapy. He states his shortness of breath is a little better. He has a cough productive, mostly of whitish bloody tinged phlegm. Temperature is 97.2, pulse 125, atrial fibrillation, respirations 22, blood pressure 131/95, O2 sat 98% on 4 liters nasal cannula. He has been afebrile throughout the admission. Heart: Normal S1-S2, irregularly irregular. Lungs: Expiratory wheezes, diminished air entry left side more than right. Abdomen is soft, nontender. Extremities: No edema. No calf tenderness. LABORATORY DATA: White count is 10.2, hemoglobin 8.1, hematocrit 24.9, platelets 275. Sodium 145, potassium 4.1, chloride 108, bicarb 31, BUN 24, creatinine 0.5 , glucose 68, calcium 8.3, phosphorus 3.2, magnesium 1.9, AST 110, ALT 92, CRP is 9.86 down from 38.6. Sputum cultures positive for yeastlike organism. Respiratory panel was negative. Blood cultures, two sets were negative and urine culture was negative. IMAGING STUDIES: Chest x-ray shows a small left apical pneumothorax and a 3.5 cm possible cavitary lesion with air fluid level in the mid lung on the left side and improved aeration of the left lung. IMPRESSION: 1. Pneumonia left lung doing better with meropenem and vancomycin. His sputum culture had no evidence of MRSA. Will discontinue IV vancomycin. Continue meropenem. 2. Lung cancer The patient does not want to continue with chemotherapy or radiation. He wants to go home on hospice on Wednesday. 3. Atrial fibrillation with rapid ventricular response followed up with cardiology doing slightly better. PLAN: Once the patient is ready to go home, he could be switched to Augmentin 875 mg by mouth twice a day for pneumonia for postobstructive pneumonia or Avelox 400 mg daily. Both would be good options. MTDD
[2017-04-01] MEDS: VENLAFAXINE **XR** 75MG CAPSULE PO SCH (20:44)
[2017-04-01] MEDS: FINASTERIDE 5 MG TAB PO SCH (20:44)
[2017-04-02] VITALS: BP 141/94
[2017-04-02] MEDS: IPRATROPIUM 0.5MG/ALBUTEROL 2.5MG INH SOL UD 3ML (DUONEB)(J7620) NEB SCH ×3 (02:00→19:54)
[2017-04-02] MEDS: KCL 20MEQ in NS 1000ML 1,000 ML IV SCH ×3 (03:31→18:17)
[2017-04-02 04:00] VITALS: BP 130/91
[2017-04-02 04:58] LABS: MEAN CORPUSCULAR HEMOGLOBIN 28.9 pg (27.0-33.0); MEAN CORPUSCULAR HGB CONC 32.9 g/dl (32.0-36.5); MEAN CORPUSCULAR VOLUME 87.8 fl (80.0-96.0); PLATELET COUNT, AUTOMATED 275 10^3/uL (150-450); RED CELL DISTRIBUTION WIDTH 16.9 % (11.5-14.5); WHITE BLOOD COUNT 7.9 10^3/uL (4.0-10.0)
[2017-04-02 05:23] LABS: ALBUMIN 1.5 GM/DL (3.2-5.2); ALBUMIN/GLOBULIN RATIO 0.47 (1.00-1.93); ALKALINE PHOSPHATASE 138 U/L (45-117); ALT/SGPT 101 U/L (12-78); ANION GAP 6 MEQ/L (8-16); AST/SGOT 70 U/L (7-37); BILIRUBIN,TOTAL 0.4 MG/DL (0.2-1.0); BLOOD UREA NITROGEN 17 MG/DL (7-18); CALCIUM LEVEL 7.6 MG/DL (8.8-10.2); CARBON DIOXIDE LEVEL 31 MEQ/L (21-32); CHLORIDE LEVEL 108 MEQ/L (98-107); CREATININE FOR GFR 0.46 MG/DL (0.70-1.30); GLOMERULAR FILTRATION RATE > 60.0 (>49); GLUCOSE, FASTING 69 MG/DL (80-110); MAGNESIUM LEVEL 1.7 MG/DL (1.8-2.4); PERCENT SATURATION 29.4 % (19.7-50.0); POTASSIUM SERUM 4.1 MEQ/L (3.5-5.1); SODIUM LEVEL 145 MEQ/L (136-145); TOTAL IRON BINDING CAPACITY 136 UG/DL (250-450); TOTAL PROTEIN 4.7 GM/DL (6.4-8.2)
[2017-04-02] MEDS: MEROPENEM INJ 1 GM in APPROPRIATE DILUENT 1 EA IV SCH (06:16)
[2017-04-02] MEDS: HumaLOG INSULIN (NovoLOG) PER UNIT SC SCH ×4 (07:30→20:43)
[2017-04-02 08:00] VITALS: BP 121/99
--- NOTE | 2017-04-02 08:25 | IPN ---
DATE: 04/02/2017 Mr. Lee unfortunately continues to be in atrial fibrillation with rapid ventricular response (RVR). His heart rate has been sometimes as high as 150. He did receive all his doses of metoprolol. For some reason, his digoxin was discontinued. I am not quite sure what was the rationale. He tells me that he feels about the same. He still gets short of breath very easily, but does denies any chest pain or sensation of palpitations. Vital Signs: Blood pressure 130/91. Heart rate as above. Afebrile. Saturation is 96% on 4 liters of oxygen by nasal cannula. Weight is documented 95 kg. He is alert, oriented and appropriate. His jugular venous pulse (JVP) is not up. Lungs are clear on the right. On the left, there are somewhat diminished breath sounds and crackles are present, but air movement is detectable throughout lung melchor. Heart Exam: Irregular rhythm with heart rate as above. Abdomen: Soft, nontender. There is no edema. Laboratory-gipson, basic metabolic panel is essentially normal, but for glucose of 69. CBC: hemoglobin 8.5, hematocrit 25, platelet count 275,000 and WBC count 7.9. ASSESSMENT/PLAN: Mr. Lee is a pleasant 61-year-old man who unfortunately has advanced lung cancer who has been undergoing chemo and radiation therapy. I was asked to see him because of atrial fibrillation with RVR. He initially responded favorably after loading of digoxin and starting low-dose beta landon, but his heart rate over the last 24 hours actually worsened. I am going to increase the dose of Lopressor to 100 twice a day and I am going to restart the digoxin. Will start him on Pradaxa in a small dose. I think it provides better prevention from strokes. Interpreting the MRI, I do not see any evidence for metastatic disease to his brain as stated in Dr. Mcdaniel's note. Apparently, there is a consideration of patient going on hospice care, in which case, I would probably have a low threshold to discontinue as many medications as possible. I believe that Dr. Harper is covering the weekend. I am not going to have him see the patient, but if there are any new concerns, please contact him for advice. INDICATION
[2017-04-02] MEDS: SENOKOT S TAB PO SCH ×2 (09:00→20:20)
[2017-04-02] MEDS: DABIGATRAN ETEXILATE 75 MG CAP (PRADAXA) PO SCH (09:00)
[2017-04-02] MEDS: CYANOCOBALAMIN 500 MCG TAB PO SCH (09:24)
[2017-04-02] MEDS: VITAMIN D 1,000 INTERNATIONAL UNITS TABLET PO SCH (09:24)
[2017-04-02] MEDS: ATORVASTATIN 20 MG TAB PO SCH (09:24)
[2017-04-02] MEDS: ESCITALOPRAM OXALATE 10 MG TAB (LEXAPRO) PO SCH (09:24)
[2017-04-02] MEDS: DIGOXIN 0.125 MG TAB PO SCH (09:25)
[2017-04-02] MEDS: METOPROLOL TARTRATE 100 MG TAB PO SCH ×2 (09:26→20:20)
[2017-04-02 12:00] VITALS: BP 134/85
[2017-04-02] MEDS ORDERED: MAG SULF 1GM/100ML (MAG RUN) 1 GM in APPROPRIATE DILUENT 1 EA IV ONE (12:00)
--- NOTE | 2017-04-02 12:18 | CCN ---
DATE: 04/02/2017 NOTE: Doyle states he is doing about the same. He states that he continues to feel weak and fatigued. His notes he still is having episodes of confusion. The patient did immediately recognize me and knew me by my name. He has had some episodes of hallucinations; however, he and his stated that he did not have any hallucinations last night or so far today. His did state that he had difficulty identifying a long time friend who was there for a visit yesterday. The patient denies any current pain. Denies any chest pain or abdominal pain. He denies shortness of breath or hemoptysis. States he does occasionally cough up some clear sputum. The patient's appetite has been decreased. PHYSICAL EXAMINATION Vitals: Temperature 97.3, pulse 142, respiratory rate 24, blood pressure is 121/99, pulse ox 96% on 4 liters. General: The patient is alert but sleepy and frequently closes his eyes during exam. He is in no acute distress. HEENT: Head is normocephalic, atraumatic. Moist mucous membranes. No jugular venous distention (JVD). CHEST: Wheezing and rhonchi throughout. CARDIOVASCULAR: Irregularly irregular, tachycardia. ABDOMEN: Positive bowel sounds, soft, nontender. EXTREMITIES: No lower extremity edema. The patient does have a little bit of swelling in the left upper extremity. LABORATORY DATA: WBC 7.9, hemoglobin 8.5, hematocrit 25.8, platelets 275. Sodium is 145, potassium is 4.1, chloride is 108, CO2 is 31, BUN 17, creatinine 0.46, glucose 69, calcium 7.6, magnesium 1.7. Iron is 40, TIBC is 136, transferrin percent saturation is 29.4, total bilirubin is 0.4, AST 70, ALT is 101, alkaline phosphatase is 138. C-reactive protein is 5.90, total protein 4.7 , albumin is 1.5. ASSESSMENT/PLAN 1. Encephalopathy/altered mental status. The patient still is having some confusion, according to his . He did have hyponatremia initially, which has improved and sodium now is within normal limits. 2. Small pneumothorax. This is felt to be likely related to chemotherapy/XRT and has not been enlarging. It does not need any specific intervention at present time. 3. Left upper lobe malignancy/consolidation, likely tumor as the patient does have lung cancer involving left upper lobe. The patient is felt to have some postobstructive atelectasis and possibly some radiation-related changes. He is being treated for pneumonia with meropenem and vancomycin and has been seen by infectious disease. The patient certainly could be susceptible to a post obstructive process. 4. Squamous cell lung cancer. The patient has undergone chemotherapy and radiation therapy. He has been discussing hospice. 5. Diabetes mellitus type 2. The patient is on sliding-scale insulin and had been on Levemir, which was discontinued due to hypoglycemia. His oral intake has been poor. Continue to monitor. 6. Atrial fibrillation with RVR. The patient is being followed by cardiology and Dr. Adams. He is on Lopressor and digoxin, as well as Pradaxa. 7. Hypertension. The patient is on Lopressor. 8. History of transient ischemic attack. The patient's aspirin and Plavix were stopped when he was placed on Pradaxa by cardiology. 9. Anxiety and depression. The patient is on Lexapro. MTDD
[2017-04-02] MEDS: MULTIVITAMINS/MINERALS THERAP 1 TAB PO SCH (12:49)
[2017-04-02] MEDS: THIAMINE 100 MG TAB PO SCH (12:49)
--- NOTE | 2017-04-02 13:19 | IPNPDOC ---
Text Note Date of Service The patient was seen on 04/02/17. NOTE Subjective: Patient seen and examined at bedside. States he is feeling better today, no new medical complaints. Daughter at bedside. Denies any worsening shortness of breath, chest pain, abdominal pain. Objective: General: NAD, lying comfortably in bed HEENT: NC/AT, EOMI, PERRL Lungs: L coarse breath sounds, R CTA Heart: +S1S2, irregularly irregular Abd: soft, NT, +BS Ext: no edema Psych: AAOx3 ASSESSMENT AND PLAN: This is a 61-year-old male patient with underlying medical history of squamous cell lung cancer, hypertension, diabetes, type2, dyslipidemia, BPH, diverticulosis, chronic back pain, bilateral rotator cuff injury, chronic neck pain, pulmonary nodules, squamous cell lung cancer, transient ischemic attack, admitted with encephalopathy and small apical pneumothorax with possible postobstructive pneumonia. #Sepsis - possibly secondary to pneumonia - possibly postobstructive - immunocompromised due to cancer and chemoradiation therapy, - continue IVF, broad spectrum Abx - deescalated to oral; cultures unrevealing thus far - follow as per ID c/s appreciated #Anemia - FOBT + - further complicating factor for role of anticoagulation #Afib w/ RVR - continue dig + BB - blood pressures are soft, rate is better but still elevated - patient had recent echo done - ASA/plavix discontinued - transitioned Pradaxa - high risk of bleeding/anemic - risks/benefits discussed at length with patient - cardiology consultation appreciated #Encephalopathy - likely metabolic encephalopathy - resolved #DM - uncontrolled - ISS, modified diet #BPH - finasteride #Hyponatremia secondary to hyperglycemia - resolved #Apical small pneumothorax - Case has been discussed with Dr. Braun and Dr. Terrazas. No intervention at this time. #Postobstructive pneumonia. - Case has been discussed with Dr. Anthony, Dr. Braun and Dr. Terrazas - No intervention at this time. Continue radiation therapy as tolerated. - The patient is not a candidate for stenting, as per . Continue antibiotics as above. #History TIA - MRI brain no acute findings - Patient previously on aspirin/plavix - continue statin #Dyslipidemia. Continue statin. #Hypertension - Patient has been hypotensive as per above - resumed low dose BB - ACEI still on hold #Squamous cell lung cancer - Case discussed with Dr. Amos and Dr. Lindquist. -Continue further radiation as per Dr. Lindquist. Dr. Braun has been consulted. #nicotine abuse - recently quit smoking - not interested in NRT #anxiety/depression - lexapro and venlafaxine as per home regimen - lorazepam prn on hold from home regimen #DEEP VEIN THROMBOSIS (DVT) PROPHYLAXIS. Heparin subcu. DISPOSITION: Patient is DO NOT RESUSCITATE/DO NOT INTUBATE (DNR/DNI). Poor long-term prognosis. The patient appears to be quite confused about his goals of care. Although he has consistently stated he wishes to continue treatment, he has told other providers he wishes to proceed with hospice. Perhaps he is not clear regarding what hospice entails. I have specifically asked him if he wants us to continue treating him to which he has answered yes. His family are also very involved and also have conflicting ideas regarding goals of care, further confusing this issue. VS,Fishbone, I+O VS, Fishbone, I+O Laboratory Tests 04/02/17 04:36 Red Blood Count 2.94 L, Mean Corpuscular Volume 87.8, Mean Corpuscular Hemoglobin 28.9, Mean Corpuscular Hemoglobin Concent 32.9, Red Cell Distribution Width 16.9 H, Calcium Level 7.6 L, Aspartate Amino Transf (AST/SGOT ) 70 H, Alanine Aminotransferase (ALT/SGPT) 101 H, Alkaline Phosphatase 138 H, Total Bilirubin 0.4, Total Protein 4.7 L, Albumin 1.5 L Vital Signs Date Time Temp Pulse Resp B/P (MAP) Pulse Ox O2 Delivery O2 Flow Rate FiO2 04/02/17 12:00 97.9 125 26 134/85 (101) 98 Nasal Cannula 4.0 I&O- Last 24 Hours up to 6 AM 04/03/17 06:00 Intake Total 530 ml Output Total 575 ml Balance -45 ml KEVIN CAMPBELL MD Apr 02, 2017 13:19
[2017-04-02] MEDS: AUGMENTIN 875 MG TAB PO SCH ×2 (13:46→20:19)
[2017-04-02 16:00] VITALS: BP 143/84
[2017-04-02 20:00] VITALS: BP 128/83
[2017-04-02] MEDS: VENLAFAXINE **XR** 75MG CAPSULE PO SCH (20:19)
[2017-04-02] MEDS: FINASTERIDE 5 MG TAB PO SCH (20:19)
[2017-04-02] MEDS: ONDANSETRON 4MG/2ML VIAL (J2405) IV PRN (20:20)
[2017-04-03] VITALS: BP 123/88
[2017-04-03] MEDS: KCL 20MEQ in NS 1000ML 1,000 ML IV SCH ×5 (00:35→18:48)
[2017-04-03] MEDS: IPRATROPIUM 0.5MG/ALBUTEROL 2.5MG INH SOL UD 3ML (DUONEB)(J7620) NEB SCH ×4 (00:59→19:42)
[2017-04-03 04:00] VITALS: BP 121/72
[2017-04-03 04:48] LABS: MEAN CORPUSCULAR HEMOGLOBIN 28.6 pg (27.0-33.0); MEAN CORPUSCULAR HGB CONC 33.2 g/dl (32.0-36.5); MEAN CORPUSCULAR VOLUME 86.2 fl (80.0-96.0); PLATELET COUNT, AUTOMATED 279 10^3/uL (150-450); RED CELL DISTRIBUTION WIDTH 16.7 % (11.5-14.5); WHITE BLOOD COUNT 10.1 10^3/uL (4.0-10.0)
[2017-04-03 05:03] LABS: ALBUMIN 1.4 GM/DL (3.2-5.2); ALBUMIN/GLOBULIN RATIO 0.37 (1.00-1.93); ALKALINE PHOSPHATASE 124 U/L (45-117); ALT/SGPT 70 U/L (12-78); ANION GAP 6 MEQ/L (8-16); AST/SGOT 25 U/L (7-37); BILIRUBIN,TOTAL 0.4 MG/DL (0.2-1.0); BLOOD UREA NITROGEN 16 MG/DL (7-18); CALCIUM LEVEL 7.7 MG/DL (8.8-10.2); CARBON DIOXIDE LEVEL 30 MEQ/L (21-32); CHLORIDE LEVEL 106 MEQ/L (98-107); CREATININE FOR GFR 0.42 MG/DL (0.70-1.30); GLOMERULAR FILTRATION RATE > 60.0 (>49); GLUCOSE, FASTING 167 MG/DL (80-110); MAGNESIUM LEVEL 1.8 MG/DL (1.8-2.4); POTASSIUM SERUM 4.2 MEQ/L (3.5-5.1); SODIUM LEVEL 142 MEQ/L (136-145); TOTAL PROTEIN 5.2 GM/DL (6.4-8.2)
--- NOTE | 2017-04-03 06:54 | IPNPDOC ---
Text Note Date of Service The patient was seen on 04/03/17. NOTE Subjective: Patient seen and examined at bedside. No new medical complaints. No acute overnight events reported. Daughter at bedside. Denies any worsening shortness of breath, chest pain, abdominal pain. Objective: General: NAD, lying comfortably in bed HEENT: NC/AT, EOMI, PERRL Lungs: L coarse breath sounds, R CTA Heart: +S1S2, irregularly irregular Abd: soft, NT, +BS Ext: no edema Psych: AAOx3 ASSESSMENT AND PLAN: This is a 61-year-old male patient with underlying medical history of squamous cell lung cancer, hypertension, diabetes, type2, dyslipidemia, BPH, diverticulosis, chronic back pain, bilateral rotator cuff injury, chronic neck pain, pulmonary nodules, squamous cell lung cancer, transient ischemic attack, admitted with encephalopathy and small apical pneumothorax with possible postobstructive pneumonia. #Sepsis - possibly secondary to pneumonia - possibly postobstructive - immunocompromised due to cancer and chemoradiation therapy, - continue IVF, broad spectrum Abx - deescalated to oral; cultures only significant for yeast in sputum - follow as per ID c/s appreciated #Anemia - FOBT + - further complicating factor for role of anticoagulation #Afib w/ RVR - restarted dig + BB; BB dose increased - rate still elevated, blood pressures WNL - patient had recent echo done - ASA/plavix discontinued - receiving Pradaxa - high risk of bleeding/anemic - risks/benefits discussed at length with patient - cardiology consultation appreciated #Encephalopathy - likely metabolic encephalopathy - resolved #DM - uncontrolled - ISS, modified diet #BPH - finasteride #Hyponatremia secondary to hyperglycemia - resolved #Apical small pneumothorax - Case has been discussed with Dr. Braun and Dr. Terrazas. No intervention at this time. #Postobstructive pneumonia. - No intervention at this time. - The patient is not a candidate for stenting, as per . Continue antibiotics as above. #History TIA - MRI brain no acute findings - Patient previously on aspirin/plavix - now on Pradaxa; continue statin #Dyslipidemia. Continue statin. #Hypertension - Patient has been hypotensive as per above - resumed low dose BB - ACEI still on hold #Squamous cell lung cancer - Case discussed with Dr. Amos and Dr. Lindquist. - Patient does not want any further RT or chemo #nicotine abuse - recently quit smoking - not interested in NRT #anxiety/depression - lexapro and venlafaxine as per home regimen - lorazepam prn on hold from home regimen #DEEP VEIN THROMBOSIS (DVT) PROPHYLAXIS. Continue with Pradaxa. DISPOSITION: Patient is DO NOT RESUSCITATE/DO NOT INTUBATE (DNR/DNI). Poor long-term prognosis. Further discussion with the patient and daughter at bedside , and the decision today is to continue with further medical management with the exception of chemo and RT. VS,Fishbone, I+O VS, Fishbone, I+O Laboratory Tests 04/03/17 04:06 Red Blood Count 3.18 L, Mean Corpuscular Volume 86.2, Mean Corpuscular Hemoglobin 28.6, Mean Corpuscular Hemoglobin Concent 33.2, Red Cell Distribution Width 16.7 H, Calcium Level 7.7 L, Aspartate Amino Transf (AST/SGOT ) 25, Alanine Aminotransferase (ALT/SGPT) 70, Alkaline Phosphatase 124 H, Total Bilirubin 0.4, Total Protein 5.2 L, Albumin 1.4 L Vital Signs Date Time Temp Pulse Resp B/P (MAP) Pulse Ox O2 Delivery O2 Flow Rate FiO2 04/03/17 04:00 97.5 120 24 121/72 (88) 94 Nasal Cannula 4.0 KEVIN CAMPBELL MD Apr 03, 2017 06:54
[2017-04-03] MEDS: ESCITALOPRAM OXALATE 10 MG TAB (LEXAPRO) PO SCH (08:15)
[2017-04-03] MEDS: CYANOCOBALAMIN 500 MCG TAB PO SCH (08:15)
[2017-04-03] MEDS: HumaLOG INSULIN (NovoLOG) PER UNIT SC SCH ×4 (08:15→20:13)
[2017-04-03] MEDS: AUGMENTIN 875 MG TAB PO SCH ×2 (08:15→20:51)
[2017-04-03] MEDS: ATORVASTATIN 20 MG TAB PO SCH (08:16)
[2017-04-03] MEDS: VITAMIN D 1,000 INTERNATIONAL UNITS TABLET PO SCH (08:16)
[2017-04-03] MEDS: DIGOXIN 0.125 MG TAB PO SCH (08:16)
[2017-04-03] MEDS: METOPROLOL TARTRATE 100 MG TAB PO SCH ×2 (08:16→20:52)
[2017-04-03] MEDS: THIAMINE 100 MG TAB PO SCH (08:17)
[2017-04-03] MEDS: MULTIVITAMINS/MINERALS THERAP 1 TAB PO SCH (08:17)
[2017-04-03] MEDS: SENOKOT S TAB PO SCH ×2 (08:17→20:52)
[2017-04-03 12:00] VITALS: BP 136/82
[2017-04-03 16:00] VITALS: BP 137/82
[2017-04-03 17:55] VITALS: BP 143/79
[2017-04-03 20:00] VITALS: BP 133/77
[2017-04-03] MEDS ORDERED: traMADol 50 MG TAB PO ONE (20:30)
[2017-04-03] MEDS: VENLAFAXINE **XR** 75MG CAPSULE PO SCH (20:52)
[2017-04-03] MEDS: CEPACOL LOZENGE PO PRN (20:52)
[2017-04-03] MEDS: FINASTERIDE 5 MG TAB PO SCH (20:52)
[2017-04-04] VITALS: BP 118/73
[2017-04-04] MEDS: IPRATROPIUM 0.5MG/ALBUTEROL 2.5MG INH SOL UD 3ML (DUONEB)(J7620) NEB SCH ×4 (00:53→21:01)
[2017-04-04] MEDS: KCL 20MEQ in NS 1000ML 1,000 ML IV SCH ×4 (00:57→22:09)
[2017-04-04 04:00] VITALS: BP 125/74
[2017-04-04 05:08] LABS: MEAN CORPUSCULAR HEMOGLOBIN 28.3 pg (27.0-33.0); MEAN CORPUSCULAR HGB CONC 32.1 g/dl (32.0-36.5); MEAN CORPUSCULAR VOLUME 88.2 fl (80.0-96.0); PLATELET COUNT, AUTOMATED 269 10^3/uL (150-450); WHITE BLOOD COUNT 10.7 10^3/uL (4.0-10.0)
[2017-04-04 05:33] LABS: ALBUMIN 1.4 GM/DL (3.2-5.2); ALKALINE PHOSPHATASE 108 U/L (45-117); ALT/SGPT 47 U/L (12-78); ANION GAP 7 MEQ/L (8-16); AST/SGOT 14 U/L (7-37); BILIRUBIN,TOTAL 0.4 MG/DL (0.2-1.0); BLOOD UREA NITROGEN 12 MG/DL (7-18); CALCIUM LEVEL 7.8 MG/DL (8.8-10.2); CARBON DIOXIDE LEVEL 27 MEQ/L (21-32); CHLORIDE LEVEL 107 MEQ/L (98-107); GLOMERULAR FILTRATION RATE > 60.0 (>49); GLUCOSE, FASTING 239 MG/DL (80-110); MAGNESIUM LEVEL 1.6 MG/DL (1.8-2.4); POTASSIUM SERUM 4.4 MEQ/L (3.5-5.1); SODIUM LEVEL 141 MEQ/L (136-145); TOTAL PROTEIN 4.9 GM/DL (6.4-8.2)
[2017-04-04] MEDS ORDERED: MAG SULF 1GM/100ML (MAG RUN) 1 GM in APPROPRIATE DILUENT 1 EA IV ONE (06:30)
[2017-04-04] MEDS: HumaLOG INSULIN (NovoLOG) PER UNIT SC SCH ×4 (07:30→20:20)
--- NOTE | 2017-04-04 07:58 | IPNPDOC ---
Text Note Date of Service The patient was seen on 04/04/17. NOTE Subjective: Patient seen and examined at bedside. No new medical complaints. Continues to be tachy, mostly in the 120-130s overnight. Denies any worsening shortness of breath, chest pain, abdominal pain. Does complain of sore throat and poor appetite. is at bedside today. Another long discussion explaining what hospice entails. Objective: General: NAD, lying comfortably in bed HEENT: NC/AT, EOMI, PERRL Lungs: much improved breath sounds Heart: +S1S2, irregularly irregular Abd: soft, NT, +BS Ext: no edema Psych: AAOx3 ASSESSMENT AND PLAN: This is a 61-year-old male patient with underlying medical history of squamous cell lung cancer, hypertension, diabetes, type2, dyslipidemia, BPH, diverticulosis, chronic back pain, bilateral rotator cuff injury, chronic neck pain, pulmonary nodules, squamous cell lung cancer, transient ischemic attack, admitted with encephalopathy and small apical pneumothorax with possible postobstructive pneumonia. #Sepsis - possibly secondary to pneumonia - possibly postobstructive - immunocompromised due to cancer and chemoradiation therapy, - decrease rate of IVF, continue oral Abx = Augmentin; cultures only significant for yeast in sputum - follow as per ID c/s appreciated #Anemia - FOBT + - further complicating factor for role of anticoagulation - H/H has been acceptable #Afib w/ RVR - continue digoxin 125mcg, metoprolol 100 mg PO BID - rate still elevated, blood pressures WNL - consider increasing BB - patient had recent echo done - Pradaxa for anticoagulation - d/w cardiology - assistance appreciated #Encephalopathy - likely metabolic encephalopathy - resolved #DM - uncontrolled - restarted low dose basal insulin - ISS, modified diet #BPH - finasteride #Hyponatremia secondary to hyperglycemia - resolved #Apical small pneumothorax - Case has been discussed with Dr. Braun and Dr. Terrazas. No intervention at this time. #Post-obstructive pneumonia. - No intervention at this time. - Patient not interested in any further RT or chemo #History TIA - MRI brain no acute findings - Patient previously on aspirin/plavix - now on Pradaxa - continue statin #Dyslipidemia - Continue statin. #Hypertension - continue BB - ACEI still on hold #Squamous cell lung cancer - Case discussed with Dr. Amos and Dr. Lindquist. - Patient does not want any further RT or chemo #nicotine abuse - recently quit smoking - not interested in NRT #anxiety/depression - lexapro and venlafaxine as per home regimen - lorazepam prn on hold from home regimen #DEEP VEIN THROMBOSIS (DVT) PROPHYLAXIS. As per above, patient receiving Pradaxa. DISPOSITION: Patient is DO NOT RESUSCITATE/DO NOT INTUBATE (DNR/DNI). Poor long-term prognosis. Once again another long discussion with his regarding what hospice entails. They (/) again agree that they don't want hospice. During our discussion a daughter had called, was placed on speaker phone and she also brought up going home with hospice. She stated that their house was setup for hospice. It appears she is confusing home care with hospice. The plan of care remains to proceed with medical management, with no RT of chemo. Will discuss further with PFS. VS,Fishbone, I+O VS, Fishbone, I+O Laboratory Tests 04/04/17 04:48 Red Blood Count 3.14 L, Mean Corpuscular Volume 88.2, Mean Corpuscular Hemoglobin 28.3, Mean Corpuscular Hemoglobin Concent 32.1, Red Cell Distribution Width 17.0 H, Calcium Level 7.8 L, Aspartate Amino Transf (AST/SGOT ) 14, Alanine Aminotransferase (ALT/SGPT) 47, Alkaline Phosphatase 108, Total Bilirubin 0.4, Total Protein 4.9 L, Albumin 1.4 L Vital Signs Date Time Temp Pulse Resp B/P (MAP) Pulse Ox O2 Delivery O2 Flow Rate FiO2 04/04/17 04:00 97.3 80 22 125/74 (91) 92 Nasal Cannula 4.0 KEVIN CAMPBELL MD Apr 04, 2017 07:58
[2017-04-04 08:07] VITALS: BP 124/69
[2017-04-04] MEDS: DIGOXIN 0.125 MG TAB PO SCH (09:06)
[2017-04-04] MEDS: ESCITALOPRAM OXALATE 10 MG TAB (LEXAPRO) PO SCH (09:06)
[2017-04-04] MEDS: AUGMENTIN 875 MG TAB PO SCH ×2 (09:06→20:25)
[2017-04-04] MEDS: ATORVASTATIN 20 MG TAB PO SCH (09:07)
[2017-04-04] MEDS: VITAMIN D 1,000 INTERNATIONAL UNITS TABLET PO SCH (09:07)
[2017-04-04] MEDS: CYANOCOBALAMIN 500 MCG TAB PO SCH (09:07)
[2017-04-04] MEDS: MULTIVITAMINS/MINERALS THERAP 1 TAB PO SCH (09:07)
[2017-04-04] MEDS: SENOKOT S TAB PO SCH ×2 (09:07→20:25)
[2017-04-04] MEDS: THIAMINE 100 MG TAB PO SCH (09:07)
[2017-04-04] MEDS: METOPROLOL TARTRATE 100 MG TAB PO SCH ×2 (09:07→20:25)
[2017-04-04 12:00] VITALS: BP 123/81
[2017-04-04 16:00] VITALS: BP 131/67
[2017-04-04 19:46] VITALS: BP 117/63
[2017-04-04] MEDS: VENLAFAXINE **XR** 75MG CAPSULE PO SCH (20:25)
[2017-04-04] MEDS: FINASTERIDE 5 MG TAB PO SCH (20:25)
[2017-04-04] MEDS: CEPACOL LOZENGE PO PRN (20:25)
[2017-04-04] MEDS: ONDANSETRON 4MG/2ML VIAL (J2405) IV PRN (23:16)
[2017-04-05 00:12] VITALS: BP 127/60
[2017-04-05] MEDS: IPRATROPIUM 0.5MG/ALBUTEROL 2.5MG INH SOL UD 3ML (DUONEB)(J7620) NEB SCH ×2 (02:07→08:20)
[2017-04-05 04:38] VITALS: BP 130/79
[2017-04-05] MEDS: KCL 20MEQ in NS 1000ML 1,000 ML IV SCH (04:38)
[2017-04-05 05:07] LABS: MEAN CORPUSCULAR HEMOGLOBIN 28.9 pg (27.0-33.0); MEAN CORPUSCULAR VOLUME 87.7 fl (80.0-96.0); PLATELET COUNT, AUTOMATED 238 10^3/uL (150-450); RED CELL DISTRIBUTION WIDTH 17.1 % (11.5-14.5); WHITE BLOOD COUNT 10.8 10^3/uL (4.0-10.0)
[2017-04-05 05:26] LABS: ALBUMIN 1.4 GM/DL (3.2-5.2); ALBUMIN/GLOBULIN RATIO 0.38 (1.00-1.93); ALKALINE PHOSPHATASE 100 U/L (45-117); ALT/SGPT 36 U/L (12-78); ANION GAP 7 MEQ/L (8-16); AST/SGOT 12 U/L (7-37); BILIRUBIN,TOTAL 0.3 MG/DL (0.2-1.0); BLOOD UREA NITROGEN 9 MG/DL (7-18); CALCIUM LEVEL 7.8 MG/DL (8.8-10.2); CARBON DIOXIDE LEVEL 27 MEQ/L (21-32); CHLORIDE LEVEL 106 MEQ/L (98-107); CREATININE FOR GFR 0.42 MG/DL (0.70-1.30); GLOMERULAR FILTRATION RATE > 60.0 (>49); GLUCOSE, FASTING 195 MG/DL (80-110); MAGNESIUM LEVEL 1.6 MG/DL (1.8-2.4); POTASSIUM SERUM 4.3 MEQ/L (3.5-5.1); SODIUM LEVEL 140 MEQ/L (136-145); TOTAL PROTEIN 5.1 GM/DL (6.4-8.2)
[2017-04-05] MEDS ORDERED: MAG SULF 1GM/100ML (MAG RUN) 1 GM in APPROPRIATE DILUENT 1 EA IV ONE (06:15)
[2017-04-05] MEDS: ATORVASTATIN 20 MG TAB PO SCH (07:50)
[2017-04-05] MEDS: ESCITALOPRAM OXALATE 10 MG TAB (LEXAPRO) PO SCH (07:50)
[2017-04-05] MEDS: AUGMENTIN 875 MG TAB PO SCH (07:50)
[2017-04-05 07:51] VITALS: BP 130/79
[2017-04-05] MEDS: CYANOCOBALAMIN 500 MCG TAB PO SCH (07:51)
[2017-04-05] MEDS: METOPROLOL TARTRATE 100 MG TAB PO SCH (07:51)
[2017-04-05] MEDS: THIAMINE 100 MG TAB PO SCH (07:52)
[2017-04-05] MEDS: SENOKOT S TAB PO SCH (07:52)
[2017-04-05] MEDS: MULTIVITAMINS/MINERALS THERAP 1 TAB PO SCH (07:52)
[2017-04-05] MEDS: DIGOXIN 0.125 MG TAB PO SCH (07:52)
[2017-04-05] MEDS: VITAMIN D 1,000 INTERNATIONAL UNITS TABLET PO SCH (07:52)
[2017-04-05] MEDS: HumaLOG INSULIN (NovoLOG) PER UNIT SC SCH (07:53)
[2017-04-05 08:00] VITALS: BP 112/66
--- NOTE | 2017-04-05 08:30 | IPN ---
DATE: 04/05/2017 Mr. Lee tells me that he wants to go home today to . He is asking whether hospice would be helpful. He denies any symptoms other than mild dyspnea. He denies any palpitations. Blood pressure is 130/79. Heart rate has been from 90s to 140s, on average, probably about 120s. Alert and oriented and appropriate. His lungs are relatively clear on the right. On the left, he still has some diminished breath sounds but no wheezing or crackles. Heart exam reveals irregular tachycardia. Abdomen is soft, nontender. No edema. Neurologically intact. Laboratory gipson, hemoglobin 8.9, hematocrit 27, platelet count 238,000. Basic metabolic panel is normal. Magnesium is 1.6 ASSESSMENT/PLAN: Mr. Lee is a 62-year-old man who has advanced lung cancer who started chemoradiation therapy but now developed large post obstructive pneumonia and was further complicated by development of atrial fibrillation. His atrial fibrillation is still not well rate-controlled, but the patient unequivocally tells me that he wants to go home to . He still would like to continue some medications, but principally he wants to be mostly comfortable. I do believe that he is exactly the type of patient that hospice is designed for. I will contact Dr. Kenny and will get hospice involved. Considering this desire, I am not going to change his medications. I will keep him on current high doses of beta blockers and digoxin.
[2017-04-05] MEDS ORDERED: LEVEMIR (INSULIN DETEMIR) 1 UNITS/0.01ML SC SCH (09:00)
[2017-04-05] MEDS ORDERED: METO100T5 PO (09:34)
[2017-04-05] MEDS ORDERED: DIGO0.12 PO (09:34)
[2017-04-05] MEDS ORDERED: FOLI1TAB4 PO (09:34)
[2017-04-05] MEDS ORDERED: THIA100TA PO (09:34)
[2017-04-05] MEDS ORDERED: LISI2.5T3 PO (09:34)
== END 2017-04-05 12:19 | disposition hospice, home (50) | DRG 871 ==
LOC: M ED 13:21 → M ED INP 20:08 → M ICU 23:00 → M PCU 04-03 17:58
PROVIDERS: ADMIT Hospitalist; ATTEND Internal Medicine
DX: A41.9 Sepsis, unspecified organism (principal); J18.9 Pneumonia, unspecified organism; G93.41 Metabolic encephalopathy; C34.12 Malignant neoplasm of upper lobe, left bronchus or lung; E87.2 Acidosis; J93.83 Other pneumothorax; E87.1 Hypo-osmolality and hyponatremia; J98.11 Atelectasis; I69.351 Hemiplegia and hemiparesis following cerebral infarction affecting right dominant side; I10 Essential (primary) hypertension; E11.65 Type 2 diabetes mellitus with hyperglycemia; Z66 Do not resuscitate; E78.5 Hyperlipidemia, unspecified; N40.0 Benign prostatic hyperplasia without lower urinary tract symptoms; J44.9 Chronic obstructive pulmonary disease, unspecified; J98.01 Acute bronchospasm; K57.90 Diverticulosis of intestine, part unspecified, without perforation or abscess without bleeding; F32.9 Major depressive disorder, single episode, unspecified; I48.91 Unspecified atrial fibrillation; E86.0 Dehydration; F41.9 Anxiety disorder, unspecified; D64.9 Anemia, unspecified; M54.5 Low back pain; E11.649 Type 2 diabetes mellitus with hypoglycemia without coma; M54.2 Cervicalgia; Z79.899 Other long term (current) drug therapy; Z86.73 Personal history of transient ischemic attack (TIA), and cerebral infarction without residual deficits; Z87.891 Personal history of nicotine dependence; Z79.82 Long term (current) use of aspirin; Z79.02 Long term (current) use of antithrombotics/antiplatelets; Z79.4 Long term (current) use of insulin; Z98.1 Arthrodesis status; Z90.49 Acquired absence of other specified parts of digestive tract